=== PATIENT | male | born 1940 | race Caucasian/White ===

== ENCOUNTER → 2016-05-21 | Outpatient (REF) | payer MEDICARE ==
[~2016-05-21] MED LIST: LISI20TA5 PO; LOVA40TA PO; MULTIVIT PO
[2016-05-21 12:04] LABS: BASO % 0.2 % (0.0-1.0); EOS # 0.1 K/mm3 (0.0-0.50); LARGE UNSTAINED CELL # 0.1 K/mm3 (0.0-0.4); LARGE UNSTAINED CELL % 2.4 % (0.0-4.0); LYMPH # 1.3 K/mm3 (1.5-4.5); LYMPH % 23.4 % (24.0-44.0); MEAN CORPUSCULAR HEMOGLOBIN 29.8 pg (27.0-33.0); MEAN CORPUSCULAR HGB CONC 32.9 g/dl (32.0-36.5); MEAN CORPUSCULAR VOLUME 90.5 fl (80.0-96.0); MONO # 0.4 K/mm3 (0.0-0.8); MONO % 7.7 % (0.0-5.0); NEUTROPHILS # 3.7 K/mm3 (1.8-7.7); NEUTROPHILS % 64.3 % (36.0-66.0); PLATELET COUNT, AUTOMATED 219 k/mm3 (150-450); RED CELL DISTRIBUTION WIDTH 12.3 % (11.5-14.5); WHITE BLOOD COUNT 5.7 K/mm3 (4.0-10.0)
[2016-05-21 12:18] LABS: ALBUMIN 3.6 GM/DL (3.2-5.2); ALBUMIN/GLOBULIN RATIO 1.06 (1.00-1.93); BILIRUBIN,TOTAL 1.1 MG/DL (0.2-1.0); CALCIUM LEVEL 9.1 MG/DL (8.8-10.2); CREATININE FOR GFR 1.9 MG/DL (0.70-1.30); GLOMERULAR FILTRATION RATE 36.9 (>42); POTASSIUM SERUM 3.7 MEQ/L (3.5-5.1)
== END ==
LOC: M SFHCPLAZ 08:03
PROVIDERS: ATTEND Family Medicine
DX: D50.9 Iron deficiency anemia, unspecified (principal); E11.9 Type 2 diabetes mellitus without complications; E78.2 Mixed hyperlipidemia

== ENCOUNTER → 2016-05-28 | Outpatient (REF) | payer MEDICARE ==
[~2016-05-28] MED LIST changes: +ATOR40TA PO; +FINA5TAB2 PO; +GLIM1TAB PO; +LEVE750T5 PO; +LEVO500T32 PO; +LISI40TAB PO; +RAPA8CAP PO; +VITMTA PO
[2016-05-28 14:05] LABS: ALBUMIN 3.7 GM/DL (3.2-5.2); ALBUMIN/GLOBULIN RATIO 1.16 (1.00-1.93); BILIRUBIN,TOTAL 1.2 MG/DL (0.2-1.0); CREATININE FOR GFR 1.89 MG/DL (0.70-1.30); GLOMERULAR FILTRATION RATE 37.1 (>42); POTASSIUM SERUM 3.7 MEQ/L (3.5-5.1); TOTAL PROTEIN 6.9 GM/DL (6.4-8.2)
== END ==
LOC: M SFHCPLAZ 10:32
PROVIDERS: ATTEND Family Medicine
DX: N18.2 Chronic kidney disease, stage 2 (mild) (principal); N40.1 Benign prostatic hyperplasia with lower urinary tract symptoms; R97.20 Elevated prostate specific antigen [PSA]
CPT/HCPCS: 36415; 80053; G0103

== ENCOUNTER → 2016-05-28 | Outpatient (CLI) | payer MEDICARE ==
--- NOTE | 2016-05-28 09:53 | REP ---
RENAL ULTRASOUND WITH DUPLEX DOPPLER RENAL ARTERY EVALUATION: Real-time sonographic evaluation of the kidneys performed. The kidneys are normal in size and diffusely hyperechoic in echotexture suggesting medical renal disease. Right kidney measures 11.7 x 6.4 x 6.5 cm and left kidney 12.0 x 6.0 x 6.9 cm. There is mild right hydronephrosis and moderate left hydronephrosis. There is a solid mass in the mid right kidney suspicious for renal cell carcinoma measuring 2.7 x 2.2 x 2.6 cm. A cyst in the right upper pole measures 4.1 cm in diameter and a cyst in the right lower pole measures 1.7 cm in diameter. There is a cyst in the upper pole of the left kidney 1.4 x 1.9 x 1.6 cm. Enlarged prostate is noted measuring 6.7 x 5.4 x 4.4 cm with significant impression upon the base of the bladder. The bladder wall is diffusely thickened and trabeculated with pre-void urinary volume 15.1 x 12.0 x 9.5 cm, total volume is 1124 mL. After voiding, there is significant post void residual of 89% with volume of 997 mL. Distal ureters are noted to be dilated. Right measures 13 mm and left 12 mm in diameter. Real-time ultrasound evaluation and duplex Doppler interrogation of the renal vasculature is performed bilaterally. Peak systolic velocity of the abdominal aorta at the level of the renal arteries is 62.3 cm/s. Peak systolic velocity in the main right renal artery at its origin is 110.7 cm/s with renal to aortic ratio 1.8. Resistive indices measured in the upper, middle and lower thirds of the right kidney and measure 0.8. Acceleration times are in the range of 0.04 to 0.06. Peak systolic velocity in the main left renal artery at its origin is 87.5 cm/s, renal to aortic ratio is 1.4. Resistive indices left kidney are in the range of 0.8. Acceleration times are in the range of 0.05 - 0.06. IMPRESSION: Hyperechoic echotexture of both kidneys suggest medical renal disease. Mild right hydroureteronephrosis and moderate left hydroureteronephrosis. Solid mass mid right kidney suspicious for renal cell carcinoma. Significantly enlarged prostate impressing upon the base of the bladder with markedly distended bladder and significant post void residual. Bladder wall is thickened and trabeculated. No duplex Doppler sonographic evidence of significant renal artery stenosis. Signed by Serafin Gonzales MD 05/28/2016 04:41 P
== END ==
LOC: M RAD 06:46
PROVIDERS: ATTEND Family Medicine
DX: N18.3 Chronic kidney disease, stage 3 (moderate) (principal); N28.89 Other specified disorders of kidney and ureter; N13.30 Unspecified hydronephrosis; E11.9 Type 2 diabetes mellitus without complications; D50.9 Iron deficiency anemia, unspecified; G40.909 Epilepsy, unspecified, not intractable, without status epilepticus; I12.9 Hypertensive chronic kidney disease with stage 1 through stage 4 chronic kidney disease, or unspecified chronic kidney disease; E78.2 Mixed hyperlipidemia; R97.20 Elevated prostate specific antigen [PSA]; N40.1 Benign prostatic hyperplasia with lower urinary tract symptoms

== ENCOUNTER 2016-05-29 17:03 | Inpatient (IN) | payer MEDICARE ==
[~2016-05-29] VITALS: Ht 175.3 cm; Wt 77.2 kg
[~2016-05-29 17:03] MED LIST changes: -ATOR40TA PO; -FINA5TAB2 PO; -GLIM1TAB PO; -LEVE750T5 PO; -LEVO500T32 PO; -LISI40TAB PO; -RAPA8CAP PO; -VITMTA PO
[2016-05-29] MEDS ORDERED: ACETAMINOPHEN 650 MG SUPP PR PRN (18:00)
[2016-05-29] MEDS ORDERED: ONDANSETRON 4MG/2ML VIAL (J2405) IV PRN (18:00)
[2016-05-29 18:30] VITALS: BP 164/95
[2016-05-29] MEDS: PERCOCET 5MG/325MG TAB PO PRN (19:07)
--- NOTE | 2016-05-29 19:16 | REP ---
CT ABDOMEN: REASON: Right renal mass. No priors CT for comparison. Previous ultrasound examination of 05/28/2016 showed a solid right renal mass measuring 2.7 x 2.2 x 2.6 cm. A cyst was also seen in the upper pole and a cyst in the lower pole. The upper pole cyst measuring 4 cm and the lower pole cyst measuring 2 cm. The lack of intravenous contrast decreased the sensitivity of the exam. Limited evaluation of the solid intraabdominal organs and gallbladder show no gross abnormalities. Limited evaluation of the pancreas and adrenal glands show no gross abnormalities. Limited evaluation of the abdominal aorta and paraortic regions show no gross abnormalities. The bowel loops and mesenteries are within normal limits. There is colonic diverticulosis. There was no evidence of free fluid or free air in the abdomen or pelvis. There are multiple bilateral low density renal cystic structures. In the interpolar region of the right kidney there is a rounded 2.4 cm sized suspected renal mass having similar Hounsfield unit readings to the underlying renal cortex. This is markedly difficult to evaluate without intravenous contrast. There are bilateral renal parapelvic cysts. There is mild right sided hydronephrosis and hydroureter. There is left sided hydronephrosis and hydroureter. The bladder wall is markedly thickened and there is a urinary bladder catheter is place. The prostate glands appears asymmetrically enlarged. Air densities are seen in the urinary bladder likely secondary to instrumentation. Bone window technique through the examination shows spinal and hip degenerative changes. Evaluation of the lung bases show suspected bibasilar fibrotic and or subsegmental atelectatic changes . IMPRESSION: 1. The exam is limited without intravenous contrast. 2. Possible right renal mass consistent with the ultrasonographic findings but this could be better evaluated with contrast enhanced CT and or gadolinium enhanced MRI. 3. Bilateral renal cysts. 4. Bilateral hydronephrosis and hydroureter seen in conjunction with markedly thickened urinary bladder wall. Malignancy can not be ruled out. 5. Other findings as described above. Signed by Jett Love DO 05/29/2016 07:30 P
[2016-05-29 19:54] LABS: INR 1.04
[2016-05-29 20:15] LABS: BASO % 0.2 % (0.0-1.0); EOS # 0.1 K/mm3 (0.0-0.50); EOS % 1.1 % (0.0-3.0); LARGE UNSTAINED CELL # 0.2 K/mm3 (0.0-0.4); LYMPH # 1.4 K/mm3 (1.5-4.5); LYMPH % 15.9 % (24.0-44.0); MEAN CORPUSCULAR HGB CONC 33.9 g/dl (32.0-36.5); MEAN CORPUSCULAR VOLUME 88.6 fl (80.0-96.0); MONO # 0.5 K/mm3 (0.0-0.8); MONO % 5.3 % (0.0-5.0); NEUTROPHILS # 6.7 K/mm3 (1.8-7.7); NEUTROPHILS % 75.5 % (36.0-66.0); PLATELET COUNT, AUTOMATED 212 k/mm3 (150-450); RED CELL DISTRIBUTION WIDTH 12.2 % (11.5-14.5); WHITE BLOOD COUNT 8.9 K/mm3 (4.0-10.0)
[2016-05-29 20:19] LABS: ALBUMIN 3.7 GM/DL (3.2-5.2); ALBUMIN/GLOBULIN RATIO 1.19 (1.00-1.93); BILIRUBIN,TOTAL 0.9 MG/DL (0.2-1.0); CALCIUM LEVEL 8.4 MG/DL (8.8-10.2); CREATININE FOR GFR 1.78 MG/DL (0.70-1.30); GLOMERULAR FILTRATION RATE 39.8 (>42); POTASSIUM SERUM 3.5 MEQ/L (3.5-5.1); TOTAL PROTEIN 6.8 GM/DL (6.4-8.2)
[2016-05-29 22:00] VITALS: BP 133/65
[2016-05-29] MEDS ORDERED: FINA5TAB2 PO (22:25)
[2016-05-29] MEDS ORDERED: RAPA8CAP PO (22:25)
[2016-05-29] MEDS ORDERED: LEVE750T5 PO (22:25)
[2016-05-29] MEDS ORDERED: LEVO500T32 PO (22:25)
[2016-05-29] MEDS ORDERED: GLIM1TAB PO (22:25)
[2016-05-29] MEDS ORDERED: ATOR40TA PO (22:25)
[2016-05-29] MEDS ORDERED: VITMTA PO (22:26)
[2016-05-29] MEDS ORDERED: LISI40TAB PO (22:27)
[2016-05-29] MEDS: levETIRAcetam 250MG TABLET (KEPPRA) PO SCH (22:58)
[2016-05-29] MEDS: TAMSULOSIN 0.4 MG CAP PO SCH (22:58)
[2016-05-29] MEDS: FINASTERIDE 5 MG TAB PO SCH (22:58)
[2016-05-29] MEDS: ATORVASTATIN 20 MG TAB PO SCH (22:58)
[2016-05-30] MEDS ORDERED: UNRESOLVED CLARIFICATION ENTRY XX SCH (00:01)
[2016-05-30 06:00] VITALS: BP 118/60
[2016-05-30] MEDS ORDERED: MOXIFLOXACIN 400 MG TAB PO SCH (06:00)
[2016-05-30 06:05] LABS: ALBUMIN 3.1 GM/DL (3.2-5.2); ALBUMIN/GLOBULIN RATIO 0.91 (1.00-1.93); BILIRUBIN,TOTAL 0.8 MG/DL (0.2-1.0); CALCIUM LEVEL 8.3 MG/DL (8.8-10.2); CREATININE FOR GFR 1.72 MG/DL (0.70-1.30); GLOMERULAR FILTRATION RATE 41.4 (>42); POTASSIUM SERUM 3.6 MEQ/L (3.5-5.1); TOTAL PROTEIN 6.5 GM/DL (6.4-8.2)
[2016-05-30 07:23] LABS: MICROSCOPIC INDICATED? MAN YES (NO)
[2016-05-30 07:25] LABS: RBC, URINE TNTC /hpf (0-3)
[2016-05-30 07:26] LABS: HYALINE CAST, URINE NONE SEEN /lpf (0-1); SQUAMOUS EPITHELIAL CELL URINE NONE SEEN /hpf (SMALL AMT)
[2016-05-30 07:28] LABS: BACTERIA, URINE SMALL AMOUNT; MICROSCOPIC EXAM UNSPUN
[2016-05-30] MEDS: PERCOCET 5MG/325MG TAB PO PRN ×2 (08:10→17:28)
[2016-05-30] MEDS: GLIMEPIRIDE 1 MG TABLET PO SCH ×2 (08:50→17:28)
[2016-05-30] MEDS ORDERED: PREVNAR 13 VACCINE SYRINGE (CPT CODE:90670) IM ONE (09:15)
[2016-05-30 14:00] VITALS: BP 127/62
--- NOTE | 2016-05-30 15:24 | ECGEPIP ---
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
[2016-05-30 20:09] VITALS: BP 125/66
[2016-05-30] MEDS: TAMSULOSIN 0.4 MG CAP PO SCH (20:10)
[2016-05-30] MEDS: levETIRAcetam 250MG TABLET (KEPPRA) PO SCH (20:10)
[2016-05-30] MEDS: ATORVASTATIN 20 MG TAB PO SCH (20:10)
[2016-05-30] MEDS: FINASTERIDE 5 MG TAB PO SCH (20:10)
[2016-05-31] MEDS: PERCOCET 5MG/325MG TAB PO PRN ×4 (01:48→20:25)
[2016-05-31] MEDS: LevoFLOXacin 250 MG TABLET PO SCH (05:57)
[2016-05-31 06:00] VITALS: BP 109/62
[2016-05-31] MEDS: GLIMEPIRIDE 1 MG TABLET PO SCH ×2 (08:39→16:51)
[2016-05-31] MEDS ORDERED: PREVNAR 13 VACCINE SYRINGE (CPT CODE:90670) IM ONE (09:00)
[2016-05-31] MEDS ORDERED: PNEUMOCOCCAL VACCINE 0.5ML SYRINGE(90732) PNEUMOVAX 23 IM ONE (09:00)
[2016-05-31 11:12] LABS: CALCIUM LEVEL 8.5 MG/DL (8.8-10.2); CREATININE FOR GFR 1.83 MG/DL (0.70-1.30); GLOMERULAR FILTRATION RATE 38.5 (>42); POTASSIUM SERUM 3.8 MEQ/L (3.5-5.1)
--- NOTE | 2016-05-31 12:36 | IPN ---
DATE: 05/30/2016 SUBJECTIVE: The patient at this time feels comfortable. He had some twinges of bladder discomfort last night and the pain medicine that had been ordered was successful in alleviating his discomfort. He notices that his Martin catheter placed yesterday continues to drain without significant difficulty. He denies nausea, vomiting, chest pain, dizziness, confusion, fevers, chills, sweats, abdominal discomfort or new musculoskeletal or joint pain. Denies numbness, tingling or seizure activity. OBJECTIVE: Vital signs: Blood pressure 118/60, pulse 60, respiratory rate 18, temperature 96.7, pulse oximetry 92% on room. Weight is 77.2 kg and height 69 inches. Estimated ideal body weight is 161 pounds. LABORATORY DATA: Creatinine 1.72, improved from yesterday's 1.78, yesterday evening and that resolve was improved from a profile done on 05/28/2016 that was 1.89 with creatinine, and it was 1.90 on 05/21/2016. Albumin 3.1 today, potassium 3.6, sodium 145. CBC shows a white count of 8900, hemoglobin 12.9 and platelet count 212,000. Urinalysis today shows turbid urine, pH was obscured by coloring. Too numerous to count red cells were seen on the urinalysis. 1-3 white cells per high-power field were identified. This was a catheterized sample after a catheter in place overnight. The urine continues to drain marilia/blood-tinged fluid. Imaging study done yesterday showed this was a CT without contrast. It showed a solid right renal mass 2.7 x 2.2 x 2.6 cm. Also seen a cyst and upper and lower pole also seen. Multiple low density renal cystic structures were identified. There is mild right-sided hydronephrosis and left-sided hydronephrosis and hydroureter as well. The bladder wall appeared to be thickened and the Martin catheter was noted to be present. Recommendation from radiology was to consider enhanced CT or gadolinium-enhanced MRI. I think with the improvement in his creatinine we should follow over the next few days. A CT with contrast would be reasonable. Dr. Garner has been consulted as according to notes from Dr. Melo who admitted the patient yesterday. EXAMINATION: He is alert, oriented, hesitant speech, accompanied by his , in no apparent distress. Barrel-chested, diminished breath sounds but no wheezing, rales or rhonchi. Heart regular rhythm. No murmur identified. Abdomen nontender. No guarding, mass or rebound. No costovertebral angle (CVA) tenderness. No suprapubic tenderness. He has no joint pain and no calf tenderness. Moves all extremities well. Catheter is in place draining marilia urine. Since admission he has had urinary output documented of 1100 mL and 1200 mL promptly upon placement of the catheter documented in the clinic yesterday [facility], Dr. Melo's office. ASSESSMENT: Obstructive uropathy, right renal mass, hematuria, suspicious findings on CT regarding bladder wall. He does have a smoking history so a bladder neoplasm is a consideration, and obviously right renal mass is suspicious for right renal neoplasm. He has a history of BPH, chronic kidney disease, stage III. Calculated clearance today based on his ideal body weight was 37.7, consistent with stage III chronic kidney disease, and he has recently diagnosed type 2 diabetes mellitus. History of epilepsy and he is on Keppra for that purpose, and history of mixed hyperlipidemia and unspecified iron deficiency anemia. PLAN: We will keep the Martin in place until it is draining clear and/or is seen by urology. The tamsulosin was only started a couple of days ago, but it may improve urinary flow sufficiently to allow removal of this catheter. He is also a reasonable candidate to start finasteride. It was showing on his clinic noted it will take many weeks or months for this agent to make a material difference in his ability to empty his bladder, however. More importantly, he will need cystoscopy to evaluate the bladder anterior and it will be up to urology senior financial consultant whether that procedure follows during his hospital stay or is to be arranged as an outpatient. The renal mass was also require further evaluation and if we see further improvement in his creatinine clearance over the next couple of days, then CT with contrast could be obtained. At this point, the patient seems comfortable. He is on Avelox presumably for prophylaxis related to insertion of Martin catheter. Avelox is not particularly a good agent for urinary tract treatment and will change it today from the current Avelox 400 to levofloxacin 250. Patient, because of the active bleeding is not on pharmacologic prophylaxis for deep venous thrombosis (DVT). He is on mechanical prophylaxis only, will encourage ambulation.
[2016-05-31 14:00] VITALS: BP 134/79
[2016-05-31] MEDS ORDERED: MORPHINE 2 MG/ML 1ML SYRINGE As Ordered ONE (16:23)
[2016-05-31] MEDS ORDERED: MORPHINE 2 MG/ML 1ML SYRINGE IV ONE (16:45)
[2016-05-31] MEDS: FINASTERIDE 5 MG TAB PO SCH (20:25)
[2016-05-31] MEDS: levETIRAcetam 250MG TABLET (KEPPRA) PO SCH (20:26)
[2016-05-31] MEDS: ATORVASTATIN 20 MG TAB PO SCH (20:26)
[2016-05-31] MEDS: TAMSULOSIN 0.4 MG CAP PO SCH (20:26)
[2016-05-31 22:00] VITALS: BP 143/73
[2016-06-01] MEDS: LevoFLOXacin 250 MG TABLET PO SCH (05:52)
[2016-06-01] MEDS: PERCOCET 5MG/325MG TAB PO PRN (05:52)
[2016-06-01 06:00] VITALS: BP 121/72
[2016-06-01 07:26] LABS: CALCIUM LEVEL 8.1 MG/DL (8.8-10.2); CREATININE FOR GFR 1.63 MG/DL (0.70-1.30); POTASSIUM SERUM 3.5 MEQ/L (3.5-5.1)
[2016-06-01] MEDS: GLIMEPIRIDE 1 MG TABLET PO SCH (08:11)
--- NOTE | 2016-06-01 08:40 | REP ---
RENAL ULTRASOUND: CLINICAL: Hydronephrosis. TECHNIQUE: Real-time longoria scale ultrasound examination using curved array transducer. FINDINGS: The right kidney demonstrates increased parenchymal echogenicity without hydronephrosis and measures 12.5 x 5.7 x 6.5 cm. Upper pole simple cyst measures 4.2 cm maximal diameter while mid pole cyst measures 1.8 cm maximal diameter. A solid appearing mass lesion along the mid pole periphery of the right kidney is identified and measures 2.9 x 2.6 x 2.2 cm requiring further evaluation. The left kidney is normal in reniform shape and demonstrates cortical thinning consistent with renal atrophy. Left kidney measures 12.8 x 5.1 x 5.5 cm without hydronephrosis and demonstrates a simple mid pole cyst measuring 2.5 cm diameter. Martin catheter identified in collapsed bladder. IMPRESSION: 1. 2.9 cm solid appearing mass along the periphery of the right kidney requires further investigation. 2. Few bilateral simple cysts and evidence for chronic medical renal disease without hydronephrosis. 3. Martin catheter in bladder. Signed by Kan Olivarez MD 06/05/2016 11:05 A
[2016-06-01 10:00] VITALS: BP 113/71
[2016-06-01] MEDS ORDERED: FLOM5CAP PO (12:35)
[2016-06-01] MEDS ORDERED: LEVA250T PO (12:35)
--- NOTE | 2016-06-01 12:58 | IPN ---
DATE OF SERVICE: 05/31/2016 SUBJECTIVE: The patient feels well. He is tolerating his Martin catheter without difficulty. He has had no fevers, chills, or flank pain, and no nausea or other signs of symptoms of discomfort. EXAMINATION: His input and output yesterday, 2480 in, output 1350. Weight is 77 kg, approximately the same as yesterday, which was 77.2. Blood pressure 109/62, pulse 60, respiratory rate 20, oxygen (O2) saturation 93% on room air, afebrile at 95.9 temperature. He is alert, pleasant, cooperative. He reintroduced his to me, even though she was present when I examined him yesterday, giving some evidence of a memory impairment. His speech is clear and fluent, however. He moves all extremities well and without difficulty. Lungs: Clear to auscultation. Heart: Regular rate and rhythm without murmur. No costovertebral angle (CVA) tenderness. Martin catheter is in place and draining red-colored urine without evidence of chronic clotting, which seems to be a bit of improvement compared to yesterday. ASSESSMENT: 1. Obstructive uropathy with hematuria. 2. Thickened bladder wall on imaging study. 3. Right renal mass on imaging study. PLAN: Contact urology to try to arrange followup opinion. The patient may be a candidate for cystoscopy and/or further management, certainly of the right renal mass. Continue his current medications, which include tamsulosin and finasteride, as well as levofloxacin 250 mg daily. Dose reduced because of his moderate renal disease. Glimepiride 1 mg twice a day. Levetiracetam 750 mg daily for history of seizure disorder. Atorvastatin 40 mg daily for hypercholesterolemia and pain medication as required. He has had a dose this morning. Despite his assertions that he has no discomfort, he seems to have experienced enough to request the pain medication. Final disposition would be per recommendations after urology consultation.
[2016-06-01 14:00] VITALS: BP 130/78
--- NOTE | 2016-06-01 15:44 | CR ---
DATE OF CONSULTATION: 05/31/2016 REASON FOR CONSULTATION: Gross hematuria, enlarged prostate, and renal mass. HISTORY OF PRESENT ILLNESS: The patient is a 75-year-old gentleman who was being seen as an outpatient by Dr. Melo. A renal ultrasound had been ordered, which showed an enlarged prostate pressing on the base of the bladder, with urinary retention and also hyperechoic kidney, suggestive of medical renal disease and also a solid renal mass. Dr. Melo decided to place a Martin catheter and it sounds like 997 mL came out. The patient began having gross hematuria, so he was sent over to the hospital and a urologic consultation was called today. Dr. Melo started the patient on finasteride and Rapaflo. A CT scan was then done on 05/29/2016 which did show a 2.7 cm solid renal mass on the right hand side with multiple renal cysts. He also had mild right hydronephrosis and left hydroureter nephrosis down to a thickened bladder wall with the distended bladder. The patient denied any difficulty urinating prior to the Martin catheter being placed. He denied any suprapubic pain or tenderness. He did have urinary urgency and occasional urge incontinence and he did go to the bathroom frequently. He felt though that his stream was normal, although he was not sure that he was emptying his bladder completely. He denies any history of gross hematuria or kidney stones prior to this. He does have a history of an elevated PSA level and reportedly had a prostate biopsy back in 05/2010, which was negative. PAST MEDICAL HISTORY: 1. 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 High blood pressure. 3. Type 2 diabetes. 4. Chronic anemia. 5. Left bundle branch block. 6. 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 7. Mild left ventricular hypertrophy. PAST SURGICAL HISTORY: Colonoscopy with polyp removals. MEDICATIONS: - Keppra - Lipitor - lisinopril - multivitamins - glimepiride ALLERGIES: PENICILLIN and PENICILLIN DERIVATIVES. SOCIAL HISTORY: He quit smoking cigarettes greater than 10 years ago. He denies drinking alcohol or using illicit drugs. FAMILY HISTORY: His father at 60 from a myocardial infarction (NC) and cerebrovascular accidents (CVAs). His mother in her 70s from a myocardial infarction (NC). His sister also from a myocardial infarction (NC). PHYSICAL EXAMINATION: This a well-developed, well-nourished gentleman in a hospital room in no apparent respiratory distress. He is alert and oriented times three, but a very poor historian and a little slow in cognition. He is afebrile. His blood pressure is 109/62 and his pulse is 60. His respiratory rate is 20. His head is normocephalic, atraumatic. His trachea was midline. He had no significant supraclavicular or cervical adenopathy. His lungs were clear to auscultation and percussion. His heart had a regular rate and rhythm. He has no costovertebral angle (CVA) tenderness on examination. His abdomen is soft and nontender. A Martin catheter is in place and it is draining dark red urine without any clots in the bag. His extremities show no cyanosis, clubbing or edema. LABORATORY DATA: His BUN is 27 today and a creatinine of 1.83 and he is not sure what his baseline is. His hemoglobin and hematocrit (H and H) is 12.9/38.1. A urinalysis shows too numerous to count red blood cells and one to three white blood cells per high power field and a urine culture is pending. CT scan of the abdomen and pelvis 05/26/2016: This does show a solid renal mass measuring 2.7 cm in the right renal pelvis and multiple right renal cysts. There is also bilateral hydronephrosis with a thickened bladder wall and a distended bladder with an enlarged prostate. Renal ultrasound 05/28/2016 shows hyperechoic kidneys suggestive of medical renal disease, again with an enlarged prostate pressing on the base of the bladder. DISCUSSION: I discussed these findings at length with Yobany and his in the office today. We did discuss the findings of the solid renal mass, which is concerning for renal cell carcinoma. He also has a rising PSA level, which is concerning for prostate cancer, especially with the other findings, although he does have a quite enlarged prostate also. We also discussed that the kidneys are slightly blocked and that this also needs to be followed. IMPRESSION: 1. Urinary retention, now with a Martin catheter in place and gross hematuria. 2. Bilateral mild to moderate hydroureteralnephrosis, most likely secondary to the urinary retention, but we will be repeating a renal ultrasound. 3. History of chronic kidney disease with a BUN and creatinine now of 27/1.83 and I am not sure what his baseline is. 4. Significant benign prostatic hypertrophy (BPH), most likely with a median lobe by renal ultrasound and CT scan. 5. Elevated PSA level with a prostate biopsy 05/30/2016, with a PSA 05/28/2016 8.34, up from 5.84 01/04/2016 and up from 4.02 03/04/2016 6. Renal mass, 2.7 cm on the right kidney, which is solid in nature, also with multiple bilateral cysts. PLAN: 1. Change the Martin catheter to a three-way Martin and begin continuous bladder irrigation and hand irrigate as needed. 2. Continue Rapaflo and finasteride for now, which was just started by Dr. Melo a few days ago. 3. Repeat renal ultrasound to make sure that there is no continued hydroureter nephrosis with an empty bladder. 4. When the patient is ready to be discharged, we will discharge with a Martin catheter in place and plan a voiding trial in approximately one week in the office and the patient may require a repeat prostate biopsy and further consideration for his solid renal mass. DEJUAN
--- NOTE | 2016-06-01 16:58 | IPN ---
DATE: 05/31/2016 INDICATIONS FOR PROCEDURE: The patient came into the hospital; found to be in acute urinary retention with an elevated creatinine level and a Martin catheter had been placed, which had been bloody overnight. I asked the nurses to exchange to a three-way Martin catheter and start continuous bladder irrigation. The nurse had attempted to do this, but was unable to so I was called back into the hospital. PROCEDURE: At this point, the patient was prepped and draped in the usual fashion. Lidocaine jelly was inserted in the urethra and a 22-Khmer three-way Martin catheter was inserted without any difficulties. 5 mL was placed in the balloon with sterile water. At this point the patient was hand irrigated and there was not any significant clots and the urine cleared nicely. He was started on low continuous bladder irrigation.
--- NOTE | 2016-06-01 20:44 | IPN ---
DATE: 06/01/2016 Mr. Chow had a three-way Martin catheter placed last night and it is now draining clear on low continuous bladder irrigation without any clots. He denies any pain or issues. PHYSICAL EXAMINATION: He is afebrile. His blood pressure is 121/72. His pulse is 77. His respiratory rate is 18 and his pulse ox is 96% on room air. He has no CVA tenderness. His abdomen is soft and nontender and his extremities show no cyanosis, clubbing or edema. A renal ultrasound was done 05/31/2016 and this showed no further hydroureter nephrosis with the Martin catheter in place. LABORATORY DATA: His BUN is 25 and his creatinine is 1.63; down from admission at 1.78. His BUN is 25 and he does have chronic kidney disease. His H H is 12.9/38.1. IMPRESSION: 1. Urinary retention with bladder outlet obstruction secondary to BPH but also with an elevated PSA level of 8 that been rising significantly over the past several years. 2. New findings of a right solid renal mass. 3. Chronic kidney disease found on admission CT to have bilateral hydroureter nephrosis but this appears to be secondary to outlet obstruction since the renal ultrasound showed no hydro once a Martin catheter was placed and 600 mL were drained. PLAN: 1. Try to stop CBI today and discharge the patient with the Martin catheter to have a voiding trial this coming week in the office. 2. The patient to follow up with Dr. Hatfield or Dr. Garner and most likely will require a cystoscopy for further assessment of his bladder outlet obstruction, but also to discuss his solid renal mass that measures 2.7 cm in the largest diameter on the right and the options for this. DEJUAN
--- NOTE | 2016-06-02 10:00 | DSES ---
DATE OF ADMISSION: 05/29/2016 DATE OF DISCHARGE: 06/01/2016 This is a 75-year-old male who presented to his primary care provider's office due to an abnormal ultrasound of his kidney. Patient showed a 2.9 cm solid appearing mass along the periphery of the right kidney. Martin catheter insertion was attempted and patient had significant amount of gross hematuria, subsequently admitted. HOSPITAL COURSE: Patient had a urology consult. Tamsulosin 0.8 mg daily at bedtime was started. Patient was also placed on Levaquin 250 mg by mouth daily for presumed urinary tract infection (UTI). However, microbiology returned with negative findings on the culture. Patient status post urology evaluation. They have set up for patient to see them as an outpatient and advised patient can go home with Martin catheter. Patient has been educated and is willing to go home with home health services and care of the Martin catheter. On physical exam today, vital signs are stable. He is afebrile. HEENT: Neck is supple without lymphadenopathy or jugular venous distention. Cardiovascular: Heart rate and rhythm regular. Pulmonary: Lungs are clear to auscultation bilaterally. Abdomen is soft with mild tenderness secondary to some constipation. Bilateral lower extremities are without any edema. ASSESSMENT: 1. Renal mass. 2. Obstructive uropathy. 3. Hematuria. 4. Suspicious findings on CT regarding bladder wall. 5. Benign prostatic hypertrophy (BPH). 6. Chronic kidney disease stage III. 7. Recent diagnosis of type 2 diabetes. 8. History of epilepsy. 9. History of hyperlipidemia. 10. Iron deficiency anemia. PLAN: Patient will be discharged home. Diet is 2 gram sodium. Activity is as tolerated. Patient will have Martin catheter indwelling. He will followup with urology on 06/05 and has appointment to follow with Madelin Barajas. He will follow with his primary care provider within the next 5 days, Dr. Chris Melo, [facility]. MEDICATIONS: - tamsulosin 0.8 mg by mouth daily at bedtime - atorvastatin 40 mg by mouth daily every evening - finasteride 5 mg by mouth daily at bedtime - glimepiride 1 mg by mouth twice daily - Keppra 750 mg by mouth daily every evening - lisinopril 40 mg by mouth daily - multivitamin one daily Patient received Pneumovax while inpatient on 05/31 as documented. Patient is discharged in stable and satisfactory condition with no further questions at time of discharge.
== END 2016-06-01 15:10 | disposition home health service (06) | DRG 726 ==
LOC: M MS5PR 18:03
PROVIDERS: ADMIT Family Medicine; ATTEND Family Medicine
DX: N40.1 Benign prostatic hyperplasia with lower urinary tract symptoms (principal); N17.9 Acute kidney failure, unspecified; N13.30 Unspecified hydronephrosis; N28.89 Other specified disorders of kidney and ureter; E11.9 Type 2 diabetes mellitus without complications; D50.9 Iron deficiency anemia, unspecified; G40.909 Epilepsy, unspecified, not intractable, without status epilepticus; I12.9 Hypertensive chronic kidney disease with stage 1 through stage 4 chronic kidney disease, or unspecified chronic kidney disease; N13.9 Obstructive and reflux uropathy, unspecified; E78.2 Mixed hyperlipidemia; R31.9 Hematuria, unspecified; E66.9 Obesity, unspecified; R97.20 Elevated prostate specific antigen [PSA]; N18.3 Chronic kidney disease, stage 3 (moderate); R33.9 Retention of urine, unspecified; Z79.84 Long term (current) use of oral hypoglycemic drugs; Z79.899 Other long term (current) drug therapy; K59.00 Constipation, unspecified; Z87.891 Personal history of nicotine dependence; Z88.0 Allergy status to penicillin; Z68.28 Body mass index [BMI] 28.0-28.9, adult; Z86.73 Personal history of transient ischemic attack (TIA), and cerebral infarction without residual deficits

== ENCOUNTER → 2016-06-10 | Outpatient (CLI) | payer MEDICARE ==
[~2016-06-10] MED LIST changes: +ATOR40TA PO; +FINA5TAB2 PO; +FLOM5CAP PO; +GLIM1TAB PO; +LEVA250T PO; +LEVE750T5 PO; +LEVO500T32 PO; +LISI40TAB PO; +RAPA8CAP PO; +VITMTA PO
--- NOTE | 2016-06-10 15:24 | REP ---
MRI KIDNEYS WITH AND WITHOUT CONTRAST: TECHNIQUE: Multiple pre- and post IV gadolinium sequences in the axial and coronal planes, with the intravenous administration of 8 mL of gadolinium. Correlation made with prior ultrasound 05/31/[address] 05/29/2016. Complex heterogeneously enhancing mass in the lower pole of the right kidney is seen most consistent with renal cell carcinoma. This measures approximately 2.4 cm in diameter. There is an adjacent posterior cyst which does not enhance measuring 1.8 cm in diameter. Daughter cyst is also seen in the upper pole of the right kidney measuring approximately 4.2 cm in diameter. There is a cyst in the posterior mid left kidney measuring 2 cm in diameter. There is no hydronephrosis bilaterally. There is no periaortic adenopathy at the level of the kidneys. There is no free fluid in the visualized abdomen. There is no other significant finding in the visualized abdomen. IMPRESSION: Solid heterogeneously enhancing mass lower pole right kidney laterally 2.4 cm in maximum diameter. This is most consistent with renal cell carcinoma. Two cysts are seen in the right kidney and one cyst is seen in the left kidney. No other abnormality is seen of the visualized abdominal structures. Signed by Serafin Gonzales MD 06/10/2016 03:43 P
== END ==
LOC: M RAD 12:33
PROVIDERS: ATTEND Urology
DX: N28.89 Other specified disorders of kidney and ureter (principal); N28.1 Cyst of kidney, acquired; R93.421 Abnormal radiologic findings on diagnostic imaging of right kidney
CPT/HCPCS: 74183; A9576

== ENCOUNTER → 2016-06-23 | Outpatient (CLI) | payer MEDICARE ==
[2016-06-24 14:23] LABS: PSA TOTAL 10.4 ng/mL (0.0-4.0)
== END ==
LOC: M SMT 10:43
PROVIDERS: ATTEND Urology
DX: R97.20 Elevated prostate specific antigen [PSA] (principal)
CPT/HCPCS: 36415; 51701; 84154; G0463

== ENCOUNTER → 2016-06-26 | Outpatient (CLI) | payer MEDICARE ==
[~2016-06-26] MED LIST changes: +KEPP1TAB2 PO; +LIDO2JELLY TOP
--- NOTE | 2016-06-26 17:29 | REP ---
TRANSRECTAL PROSTATE ULTRASOUND WITH ULTRASOUND GUIDANCE FOR PROSTATE BIOPSY: Real-time sonographic evaluation of the prostate performed. Transrectal probe is utilized. Size of the gland is 7.3 x 7.2 x 6.3 cm for a total volume of 175 mL. Echotexture diffusely heterogenous with scattered tiny calcifications. A right sided nodule measures 15 x 11 mm. A left sided nodule measures 13 x 8 mm. Seminal vesicles appear symmetrical. Ultrasound guidance was provided per Dr. Garner who performed ultrasound guided biopsy of the prostate. Signed by Serafin Gonzales MD 06/26/2016 05:41 P
== END ==
LOC: M SMT PRO 10:12
PROVIDERS: ATTEND Urology
DX: R97.20 Elevated prostate specific antigen [PSA] (principal); N41.9 Inflammatory disease of prostate, unspecified
CPT/HCPCS: 55700; 76872; 76942; G0416

== ENCOUNTER 2016-07-21 12:00 | Inpatient (IN) | payer MEDICARE ==
[~2016-07-21] VITALS: Ht 167.6 cm; Wt 78.0 kg
[2016-08-04] MEDS ORDERED: LR 1,000 ML IV ONE (10:00)
[2016-08-04] MEDS ORDERED: BUPIVACAINE HCL 0.25% 30 ML VIAL As Ordered ONE (13:41)
[2016-08-04] MEDS ORDERED: LIDOCAINE 1% SDV INJ 30 ML VIAL As Ordered ONE (13:41)
[2016-08-04] MEDS ORDERED: ONDANSETRON 4MG/2ML VIAL (J2405) As Ordered ONE (13:55)
[2016-08-04] MEDS ORDERED: GLYCOPYRROLATE INJ 0.2 MG/ML 2 ML VIAL As Ordered ONE (13:55)
[2016-08-04] MEDS ORDERED: NEOSTIGMINE 1MG/ML 5 ML SYRINGE (J2710) As Ordered ONE (13:55)
[2016-08-04] MEDS ORDERED: fentaNYL 250 MCG/5 ML INJECTION (J3010) As Ordered ONE (13:55)
[2016-08-04] MEDS ORDERED: ESMOLOL INJ 100MG/10ML VIAL As Ordered ONE (13:55)
[2016-08-04] MEDS ORDERED: MIDAZOLAM INJ 2 MG/2 ML VIAL (J2250) As Ordered ONE (13:55)
[2016-08-04] MEDS ORDERED: ROCURONIUM BROMIDE 50 MG/5 ML VIAL As Ordered ONE (13:55)
[2016-08-04] MEDS ORDERED: LIDOCAINE 2% INJ 100 MG/5 ML SDV (FOR ANES.) As Ordered ONE (13:55)
[2016-08-04] MEDS ORDERED: PROPOFOL 200 MG/20 ML VIAL As Ordered ONE (13:55)
[2016-08-04] MEDS ORDERED: METOCLOPRAMIDE INJ 10MG/2ML VIAL (J2765) As Ordered ONE (13:55)
[2016-08-04] MEDS ORDERED: ePHEDrine SULFATE 25 MG/5 ML(5MG/ML) SYRINGE As Ordered ONE (13:55)
[2016-08-04] MEDS ORDERED: HYDROmorphone HCL 2 MG/ML 1ML VIAL (J1170) As Ordered ONE (14:12)
[2016-08-04] MEDS ORDERED: MANNITOL 25% 12.5 GM/50 ML VIAL (J2150) As Ordered ONE (14:33)
[2016-08-04] MEDS ORDERED: PHENYLephrine HCL 500 MCG/5 ML (100MCG/ML) SYRINGE (J2370) As Ordered ONE (15:21)
[2016-08-04] MEDS ORDERED: DESFLURANE 240 ML INHALANT As Ordered ONE (15:48)
[2016-08-04] MEDS ORDERED: dexameTHASONE 4 MG/ML 1ML VIAL (J1100) As Ordered ONE (17:41)
[2016-08-04] MEDS ORDERED: ACETAMINOPHEN TAB 650MG DOSE (2X325MG) PO PRN (19:00)
[2016-08-04] MEDS ORDERED: LR 1,000 ML IV SCH (19:00)
[2016-08-04] MEDS ORDERED: GLUCAGON FOR INJ 1 MG VIAL (J1610) SC PRN (19:00)
[2016-08-04] MEDS ORDERED: HYDROmorphone HCL 1 MG/ML SYRINGE (J1170) IV PRN (19:00)
[2016-08-04] MEDS ORDERED: MORPHINE 2 MG/ML 1ML SYRINGE IV PRN (19:00)
[2016-08-04] MEDS ORDERED: PERCOCET 5MG/325MG TAB PO PRN (19:00)
[2016-08-04] MEDS ORDERED: ONDANSETRON 4MG/2ML VIAL (J2405) IV PRN ×2 (19:00)
[2016-08-04] MEDS ORDERED: GLUCOSE 4 GM CHEW TABLET PO PRN (19:00)
[2016-08-04] MEDS ORDERED: fentaNYL 100 MCG/2 ML INJECTION (J3010) IV PRN (19:00)
[2016-08-04] MEDS ORDERED: DEXTROSE 50% 50 ML SYRINGE IV PRN (19:00)
[2016-08-04 19:33] LABS: MEAN CORPUSCULAR HEMOGLOBIN 30.6 pg (27.0-33.0); MEAN CORPUSCULAR HGB CONC 33.2 g/dl (32.0-36.5); MEAN CORPUSCULAR VOLUME 92.4 fl (80.0-96.0); RED CELL DISTRIBUTION WIDTH 13.3 % (11.5-14.5); WHITE BLOOD COUNT 10.6 K/mm3 (4.0-10.0)
--- NOTE | 2016-08-04 19:33 | ROOPDOC ---
[facility] Report Of Operation Report of Operation DATE OF PROCEDURE: 08/04/2016 PREPROCEDURE DIAGNOSIS: Right renal mass. POSTPROCEDURE DIAGNOSIS: Right renal mass, right renal cyst. PROCEDURE: Right robotic assisted laparoscopic partial nephrectomy and renal cyst decortication with renal exploration and intraoperative ultrasound for tumor mapping. SURGEON: Miladis Moulton MD JACKSCREW MAN: Zahraa Ann NP ANESTHESIA: General. OPERATIVE INDICATIONS: This is a 76-year-old male who was found recently on CAT scan to have an approximately 2.5cm enhancing right renal mass. He opted to undergo the above procedure for treatment. DESCRIPTION OF PROCEDURE: The patient was brought to the operating room where general anesthesia was induced. Prophylactic antibiotics were infused. A 16Fr coude catheter was then placed under sterile conditions. He was then placed in the left lateral decubitus position and secured to the table with tape. All pressure points were appropriately padded. He was then prepped and draped in the usual sterile fashion. Initial incision was for a 12 mm port along the lateral rectus margin in line with the 11th rib. After incision was made, the Veress needle was utilized to achieve pneumoperitoneum. A 12 mm port was inserted through this incision. Next, the camera was inserted and there were no apparent injuries from either Veress needle placement or initial trocar placement. The remainder of the ports were then placed under direct vision, including a 12 mm back office medical assistant port just distal to the camera port. Two robotic ports were placed with one of them between the anterior superior iliac spine and umbilicus and the other one just off the costal margin. In addition, two 5 mm ports were placed with one just beneath the xiphoid and the other one midway between the camera port and the right hand robotic port. After all the ports were placed, the robot was then docked. We began by releasing adhesions between the liver and upper part of Gerota's fascia. The liver was then lifted cephalad using a locking Allis clamp. We then mobilized the right colon away from Gerota's fascia. The duodenum was kocherized. At this point, the inferior vena cava was readily seen. We traced it up towards the right renal vein. Of note the patient had 2 renal veins. Just inferior and posterior to the more distal renal vein we identified the right renal artery. The artery was carefully dissected and cleared. Once we had dissected the artery, we then mobilized the kidney within Gerota's fascia. On the upper pole of the kidney a large cyst was seen. This cyst was punctured and clear fluid was aspirated. The wall of the cyst was then removed and sent for pathologic analysis. The edges of the cyst wall were then cauterized. The mass was found on the lower pole of the kidney in an anterior location. At this point, intraoperative ultrasound was performed to notate the margins of the tumor. Of note, while doing our dissection of the kidney, no additional abnormalities were seen on the kidney. Once we made note of the margins of the tumor, I asked anesthesia to administer 12.5 mg of Mannitol. After that was done, we proceeded to place a clamp on the renal artery. We did not clamp the vein. After our clamp was placed and it was clear that we had good vascular control, we began to dissect out the tumor. The tumor was then dissected using cold scissors. We kept doing this until the tumor was completely excised. It did appear that we had clean margins. After excising the tumor, we then performed the renorrhaphy. This was first performed using a #2-0 Vicryl suture and this was utilized to suture the deeper portion of the renal defect. After that point, we used an #0 Vicryl suture to reapproximate the renal capsule. Both of these sutures were cinched down using Weck clips. After these sutures were placed, the vascular clamp was taken off the renal artery. Of note, the warm ischemia time was 25 minutes. Once the vascular clamp was removed, it did appear that hemostasis was excellent. We placed Emma hemostatic powder over the partial nephrectomy bed. Once we confirmed excellent hemostasis, we then reapproximated Gerota's fascia using Weck clips. The tumor was then placed in an Endo Catch bag for future retrieval. We released the locking Allis clamp which was retracting the liver and there did not appear to be any injuries to the liver. Next, we removed the left hand robotic instrument and inserted a J-P drain in through that port site. This drain was placed just anterior to the right kidney. Once that was done, the robot was undocked. We then sutured the J-P drain in place using a #2-0 Ethilon suture. After that was done, we removed the tumor through the back office medical assistant port site. We then utilized the Fadi-Nidia fascia closure device to place #0 Vicryl free ties through the fascia of both the 12 mm camera port site and the 15 mm back office medical assistant port site. Once that was done, all the remaining ports were removed under direct vision. There was no bleeding seen. The previously placed #0 Vicryl free ties were then tied down. All the wounds were then thoroughly irrigated. After that was done, each incision was closed with running #4-0 Monocryl subcuticular suture. Once all the incisions were closed, Dermabond was applied and local anesthetic was applied. This marked conclusion of the procedure. The patient was then awakened from anesthesia and then transported to the recovery room in stable condition. Estimated blood loss: 50 mL. Complications: None. Specimen: Right renal mass, right renal cyst wall. Warm Ischemia Time: 25 minutes. Percent Normal Kidney Spared: Approximately 95%. Plan: The patient will be admitted to the hospital postoperatively. He will be observed and will ultimately be discharged home once his kidney function is stable, his pain is controlled with oral pain medication and he is tolerating a regular diet. MILADIS MOULTON MD August 04, 2016 19:33
[2016-08-04 19:43] LABS: ANION GAP 6 MEQ/L (8-16); BLOOD UREA NITROGEN 17 MG/DL (7-18); CALCIUM LEVEL 8.3 MG/DL (8.8-10.2); CARBON DIOXIDE LEVEL 28 MEQ/L (21-32); CHLORIDE LEVEL 105 MEQ/L (98-107); GLOMERULAR FILTRATION RATE > 60.0 (>42); GLUCOSE, FASTING 149 MG/DL (83-110); POTASSIUM SERUM 4.1 MEQ/L (3.5-5.1); SODIUM LEVEL 139 MEQ/L (136-145)
[2016-08-04 21:50] VITALS: BP 162/85
[2016-08-04 22:20] VITALS: BP 160/80
[2016-08-04] MEDS: NS 1,000 ML IV SCH (23:03)
[2016-08-04] MEDS: FINASTERIDE 5 MG TAB PO SCH (23:04)
[2016-08-04] MEDS: levETIRAcetam 250MG TABLET (KEPPRA) PO SCH (23:04)
[2016-08-04] MEDS: ceFAZolin SOD 1 GM in D5W MINI-BAG PLUS 50 ML IV SCH (23:04)
[2016-08-04] MEDS: ATORVASTATIN 20 MG TAB PO SCH (23:04)
[2016-08-04] MEDS: DOCUSATE SODIUM 100 MG CAP PO SCH (23:04)
[2016-08-04 23:20] VITALS: BP 132/65
[2016-08-05 00:20] VITALS: BP 122/60
[2016-08-05 01:20] VITALS: BP 128/72
[2016-08-05] MEDS: ceFAZolin SOD 1 GM in D5W MINI-BAG PLUS 50 ML IV SCH (06:13)
[2016-08-05] MEDS: NS 1,000 ML IV SCH ×2 (06:15→20:34)
[2016-08-05 06:44] LABS: MEAN CORPUSCULAR HEMOGLOBIN 30.6 pg (27.0-33.0); MEAN CORPUSCULAR HGB CONC 33.3 g/dl (32.0-36.5); MEAN CORPUSCULAR VOLUME 91.9 fl (80.0-96.0); RED CELL DISTRIBUTION WIDTH 13.2 % (11.5-14.5); WHITE BLOOD COUNT 12.9 K/mm3 (4.0-10.0)
[2016-08-05 07:08] LABS: CALCIUM LEVEL 8.4 MG/DL (8.8-10.2); CREATININE FOR GFR 1.31 MG/DL (0.70-1.30); GLOMERULAR FILTRATION RATE 56.5 (>42); POTASSIUM SERUM 4.3 MEQ/L (3.5-5.1)
[2016-08-05] MEDS ORDERED: PERCOCET 5MG/325MG TAB PO PRN (08:15)
[2016-08-05] MEDS: HumaLOG INSULIN (NovoLOG) PER UNIT SC SCH ×3 (08:48→17:58)
--- NOTE | 2016-08-05 08:48 | IPNPDOC ---
Assessment/Plan Date Seen The patient was seen on 08/05/16. Patient Summary This is a 76 y/o M POD1 s/p right robotic-assisted laparoscopic partial nephrectomy and cyst decortication. He is doing well. His Hb is stable at 12. His Cr is up a little to 1.3. He had at least 300-400cc of urine in his drainage bag this morning. Plan/VTE VTE Prophylaxis Ordered?: Yes VTE Exclusion Mechanical Proph: N/A:VTE Prophy Ordered Plan/Urinary Catheter Urinary Catheter: Other Catheter: (keep catheter in place as the patient is in chronic urinary retention due to BPH) Plan - keep catheter to gravity drainage - decrease IVF - percocet prn pain w/ morphine for breakthrough pain - ambulate - continue home meds - sliding scale insulin - SCDs - incentive spirometry - strict I/Os - advance diet as tolerated Subjective Review oF Systems Chief Complaint The patient is a 76-year-old male admitted with a reason for visit of Renal Mass. Events since Last Encounter No acute events o/n. Good pain control. No n/v. No chest pain or shortness of breath. No f/c/ns. Objective Physical Examination General Exam: Alert, Cooperative, No Acute Distress ENT EXAM: Atraumatic ABDOMEN EXAM: Soft, Tenderness (appropriately tender), Other (incisions clean/ dry/intact; MANN draining serosanguinous output) Skin Exam: Nl turgor and temperature Neuro Exam: Normal Speech Psych Exam: Mental status NL, Mood NL Other physical findings catheter draining clear urine Vital Signs/I&O Vital Signs Date Time Temp Pulse Resp B/P (MAP) Pulse Ox O2 Delivery O2 Flow Rate FiO2 08/05/16 05:41 97 Nasal Cannula 2.0 08/05/16 01:20 99.0 95 16 128/72 (90) I&O- Last 24 Hours up to 6 AM 08/05/16 06:00 Intake Total 4682 ml Output Total 690 ml Balance 3992 ml Laboratory Data Labs 24H Laboratory Tests 2 08/04/16 19:09: Anion Gap 6L, Glomerular Filtration Rate > 60.0, Blood Urea Nitrogen 17, Creatinine 1.20, Sodium Level 139, Potassium Level 4.1, Chloride Level 105, Carbon Dioxide Level 28, Calcium Level 8.3L 08/05/16 06:31: Anion Gap 7L, Glomerular Filtration Rate 56.5, Blood Urea Nitrogen 18, Creatinine 1.31H, Sodium Level 138, Potassium Level 4.3, Chloride Level 105, Carbon Dioxide Level 26, Calcium Level 8.4L CBC/BMP Laboratory Tests 08/04/16 19:09 Red Blood Count 3.90 L, Mean Corpuscular Volume 92.4, Mean Corpuscular Hemoglobin 30.6, Mean Corpuscular Hemoglobin Concent 33.2, Red Cell Distribution Width 13.3, Calcium Level 8.3 L 08/05/16 06:31 Red Blood Count 3.92 L, Mean Corpuscular Volume 91.9, Mean Corpuscular Hemoglobin 30.6, Mean Corpuscular Hemoglobin Concent 33.3, Red Cell Distribution Width 13.2, Calcium Level 8.4 L MILADIS MOULTON MD August 05, 2016 08:48
[2016-08-05] MEDS: PERCOCET 5MG/325MG TAB PO PRN ×3 (08:49→22:14)
[2016-08-05] MEDS: DOCUSATE SODIUM 100 MG CAP PO SCH ×2 (08:49→20:34)
[2016-08-05] MEDS: levETIRAcetam 250MG TABLET (KEPPRA) PO SCH ×2 (08:49→20:34)
[2016-08-05] MEDS ORDERED: MORPHINE 2 MG/ML 1ML SYRINGE IV PRN (09:00)
[2016-08-05 10:00] VITALS: BP 132/70
[2016-08-05 14:00] VITALS: BP 141/83
[2016-08-05] MEDS: ATORVASTATIN 20 MG TAB PO SCH (20:33)
[2016-08-05] MEDS: FINASTERIDE 5 MG TAB PO SCH (20:34)
[2016-08-05 22:00] VITALS: BP 145/65
[2016-08-06 06:00] VITALS: BP 146/77
[2016-08-06] MEDS: PERCOCET 5MG/325MG TAB PO PRN (06:42)
[2016-08-06 06:54] LABS: MEAN CORPUSCULAR HEMOGLOBIN 30.9 pg (27.0-33.0); MEAN CORPUSCULAR HGB CONC 33.7 g/dl (32.0-36.5); MEAN CORPUSCULAR VOLUME 91.5 fl (80.0-96.0); RED CELL DISTRIBUTION WIDTH 13.3 % (11.5-14.5); WHITE BLOOD COUNT 10.8 K/mm3 (4.0-10.0)
[2016-08-06 07:11] LABS: ANION GAP 6 MEQ/L (8-16); BLOOD UREA NITROGEN 22 MG/DL (7-18); CALCIUM LEVEL 8.2 MG/DL (8.8-10.2); CARBON DIOXIDE LEVEL 28 MEQ/L (21-32); CHLORIDE LEVEL 105 MEQ/L (98-107); CREATININE FOR GFR 1.13 MG/DL (0.70-1.30); GLOMERULAR FILTRATION RATE > 60.0 (>42); GLUCOSE, FASTING 117 MG/DL (83-110); POTASSIUM SERUM 3.9 MEQ/L (3.5-5.1); SODIUM LEVEL 139 MEQ/L (136-145)
--- NOTE | 2016-08-06 08:30 | IPNPDOC ---
Assessment/Plan Date Seen The patient was seen on 08/06/16. Patient Summary 76 y/o M POD2 s/p right robotic partial nephrectomy. Doing well. UOP is excellent. Cr is trending down. Hb is stable. Plan/VTE VTE Prophylaxis Ordered?: Yes VTE Exclusion Mechanical Proph: N/A:VTE Prophy Ordered Plan/Urinary Catheter Urinary Catheter: Other Catheter: (keep catheter in place as the patient is in chronic urinary retention due to BPH) Plan - d/c MANN drain - percocet prn pain - ambulate - SCDs - incentive spirometry - discharge home today w/ catheter Subjective Review oF Systems Chief Complaint The patient is a 76-year-old male admitted with a reason for visit of Renal Mass. Events since Last Encounter No acute events o/n. Good pain control. No n/v. No chest pain or SOB. Ambulating well. No f/c/ns. Objective Physical Examination General Exam: Alert, Cooperative, No Acute Distress ENT EXAM: Atraumatic ABDOMEN EXAM: Soft, Tenderness (appropriately tender), Other (incisions clean/ dry/intact; MANN draining serosanguinous output) Skin Exam: Nl turgor and temperature Neuro Exam: Normal Speech Psych Exam: Mental status NL, Mood NL Other physical findings catheter draining clear urine Vital Signs/I&O Vital Signs Date Time Temp Pulse Resp B/P (MAP) Pulse Ox O2 Delivery O2 Flow Rate FiO2 08/06/16 08:18 Room Air 08/06/16 07:12 20 08/06/16 06:00 100.1 80 146/77 (100) 95 08/05/16 05:41 2.0 I&O- Last 24 Hours up to 6 AM 08/06/16 06:00 Intake Total 2076 ml Output Total 2320 ml Balance -244 ml Laboratory Data Labs 24H Laboratory Tests 2 08/05/16 12:04: Bedside Glucose (Misc Panel) 149H 08/05/16 16:34: Bedside Glucose (Misc Panel) 135H 08/05/16 21:05: Bedside Glucose (Misc Panel) 114H 08/06/16 06:21: Anion Gap 6L, Glomerular Filtration Rate > 60.0, Blood Urea Nitrogen 22H, Creatinine 1.13, Sodium Level 139, Potassium Level 3.9, Chloride Level 105, Carbon Dioxide Level 28, Calcium Level 8.2L CBC/BMP Laboratory Tests 08/06/16 06:21 Red Blood Count 3.50 L, Mean Corpuscular Volume 91.5, Mean Corpuscular Hemoglobin 30.9, Mean Corpuscular Hemoglobin Concent 33.7, Red Cell Distribution Width 13.3, Calcium Level 8.2 L FSBS Laboratory Tests Test 08/05/16 12:04 08/05/16 16:34 08/05/16 21:05 Range/Units Bedside Glucose (Misc Panel) 149 135 114 83-110 MG/DL MILADIS MOULTON MD August 06, 2016 08:30
[2016-08-06] MEDS: DOCUSATE SODIUM 100 MG CAP PO SCH (09:03)
[2016-08-06] MEDS: HumaLOG INSULIN (NovoLOG) PER UNIT SC SCH (09:03)
[2016-08-06] MEDS: levETIRAcetam 250MG TABLET (KEPPRA) PO SCH (09:03)
[2016-08-06] MEDS ORDERED: COLA100C3 PO (10:08)
[2016-08-06] MEDS ORDERED: PROS5TAB PO (10:08)
[2016-08-06] MEDS ORDERED: TYLE325T5 PO (10:08)
[2016-08-06] MEDS ORDERED: OXYC1TAB23 PO (10:19)
--- NOTE | 2016-08-07 21:21 | DSES ---
DATE OF ADMISSION: 08/04/2016 DATE OF DISCHARGE: 08/06/2016 ADMISSION DIAGNOSIS: Right renal mass. DISCHARGE DIAGNOSIS: Right renal mass. ADMITTING PHYSICIAN: Moody Garner MD. DISCHARGE PHYSICIAN: Moody Garner MD. PROCEDURES PERFORMED: Right robotic-assisted partial nephrectomy and cyst decortication. HISTORY OF PRESENT ILLNESS: This is a 76-year-old male previously found to have an approximately 2.5 cm enhancing right renal mass concerning for cancer. He elected to undergo the above-listed procedure for treatment, and was admitted to the hospital postoperatively. HOSPITAL COURSE: The patient's postoperative course was unremarkable. On postoperative day one, he was ambulating well and was tolerating a regular diet. His urine output was excellent, and his creatinine did go up as expected a little bit on postoperative day one to 1.3. By postoperative day two, his creatinine had come down to normal at 1.1 and has continued to make excellent urine output. His hemoglobin levels remained stable, and he ambulated well and tolerated a regular diet. His pain was well controlled with pain medications. He was therefore deemed ready for discharge home on postoperative day two. His Isak-Gar drain was removed prior to discharge. Of note, this patient has chronic urinary retention due to benign prostatic hypertrophy (BPH) and, therefore, his catheter was kept in place and he was discharged with it in place on postoperative day two. The patient will followup up in clinic in a few weeks to discuss pathology results and for a postoperative check.
== END 2016-08-06 11:35 | disposition home or self-care (01) | DRG 700 ==
LOC: M OR 08-04 09:31 → M MS5PR 08-04 21:35
PROVIDERS: ADMIT Urology; ATTEND Urology
PROC: 0T9 Urinary System, Drainage (ICD-10-PCS; 2016-08-04)
PROC: 8E0W4CZ Robotic Assisted Procedure of Trunk Region, Percutaneous Endoscopic Approach (ICD-10-PCS; 2016-08-04)
PROC: 0TB04ZX Excision of Right Kidney, Percutaneous Endoscopic Approach, Diagnostic (ICD-10-PCS; principal; 2016-08-04 12:40)
DX: N28.1 Cyst of kidney, acquired (principal); D30.01 Benign neoplasm of right kidney; N18.3 Chronic kidney disease, stage 3 (moderate); E11.9 Type 2 diabetes mellitus without complications; G40.909 Epilepsy, unspecified, not intractable, without status epilepticus; I12.9 Hypertensive chronic kidney disease with stage 1 through stage 4 chronic kidney disease, or unspecified chronic kidney disease; N40.1 Benign prostatic hyperplasia with lower urinary tract symptoms; D50.9 Iron deficiency anemia, unspecified; E78.2 Mixed hyperlipidemia; R97.20 Elevated prostate specific antigen [PSA]; I44.7 Left bundle-branch block, unspecified; Z87.891 Personal history of nicotine dependence; Z88.0 Allergy status to penicillin; Z79.899 Other long term (current) drug therapy

== ENCOUNTER → 2016-07-21 | Outpatient (CLI) | payer MEDICARE ==
[2016-07-21 08:32] LABS: MEAN CORPUSCULAR HEMOGLOBIN 31.1 pg (27.0-33.0); MEAN CORPUSCULAR HGB CONC 34.1 g/dl (32.0-36.5); RED CELL DISTRIBUTION WIDTH 13.5 % (11.5-14.5); WHITE BLOOD COUNT 5.1 K/mm3 (4.0-10.0)
[2016-07-21 08:44] LABS: INR 1.02
[2016-07-21 08:56] LABS: ALBUMIN 3.5 GM/DL (3.2-5.2); ALKALINE PHOSPHATASE 86 U/L (45-117); ALT/SGPT 31 U/L (12-78); ANION GAP 7 MEQ/L (8-16); AST/SGOT 21 U/L (15-37); BILIRUBIN,TOTAL 0.7 MG/DL (0.2-1.0); BLOOD UREA NITROGEN 17 MG/DL (7-18); CALCIUM LEVEL 8.7 MG/DL (8.8-10.2); CARBON DIOXIDE LEVEL 26 MEQ/L (21-32); CHLORIDE LEVEL 107 MEQ/L (98-107); CREATININE FOR GFR 0.96 MG/DL (0.70-1.30); GLOMERULAR FILTRATION RATE > 60.0 (>42); GLUCOSE, FASTING 93 MG/DL (83-110); POTASSIUM SERUM 4.1 MEQ/L (3.5-5.1); SODIUM LEVEL 140 MEQ/L (136-145)
--- NOTE | 2016-07-21 09:37 | REP ---
Chest two views HISTORY: Preop Comparison: 06/25/2010 The lungs are clear. The heart is normal in size. The pulmonary vasculature is normal in appearance. The bony structure is intact. IMPRESSION: No acute disease. Signed by Noel Tejeda MD 07/21/2016 09:28 A
--- NOTE | 2016-07-23 17:39 | ECGEPIP ---
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
== END ==
LOC: M LAB 07:56
PROVIDERS: ATTEND Urology
DX: Z01.818 Encounter for other preprocedural examination (principal); N28.89 Other specified disorders of kidney and ureter; R00.1 Bradycardia, unspecified; I45.10 Unspecified right bundle-branch block

== ENCOUNTER → 2016-08-25 | Outpatient (CLI) | payer MEDICARE ==
[~2016-08-25] MED LIST changes: +COLA100C3 PO; +OXYC1TAB23 PO; +PROS5TAB PO; +TYLE325T5 PO
[2016-08-25 13:02] LABS: MEAN CORPUSCULAR HEMOGLOBIN 29.8 pg (27.0-33.0); MEAN CORPUSCULAR HGB CONC 32.5 g/dl (32.0-36.5); MEAN CORPUSCULAR VOLUME 91.5 fl (80.0-96.0); RED CELL DISTRIBUTION WIDTH 12.9 % (11.5-14.5); WHITE BLOOD COUNT 5.9 K/mm3 (4.0-10.0)
[2016-08-25 13:29] LABS: ANION GAP 4 MEQ/L (8-16); BLOOD UREA NITROGEN 21 MG/DL (7-18); CALCIUM LEVEL 9.1 MG/DL (8.8-10.2); CARBON DIOXIDE LEVEL 30 MEQ/L (21-32); CHLORIDE LEVEL 105 MEQ/L (98-107); CREATININE FOR GFR 1.01 MG/DL (0.70-1.30); GLOMERULAR FILTRATION RATE > 60.0 (>42); GLUCOSE, FASTING 79 MG/DL (83-110); POTASSIUM SERUM 4.1 MEQ/L (3.5-5.1); SODIUM LEVEL 139 MEQ/L (136-145)
== END ==
LOC: M SMT 08:42
PROVIDERS: ATTEND Urology
DX: D49.511 Neoplasm of unspecified behavior of right kidney (principal)

== ENCOUNTER → 2016-09-24 | Outpatient (REF) | payer MEDICARE ==
[~2016-09-24] MED LIST changes: -ATOR40TA PO; +ATOR40TA75 PO; -COLA100C3 PO; +COLA100C5 PO; +LEVA1TAB PO; -LEVA250T PO; +LEVO500T3 PO; -LEVO500T32 PO
[2016-09-24 11:48] LABS: BASO % 0.4 % (0.0-1.0); EOS # 0.3 K/mm3 (0.0-0.50); EOS % 3.8 % (0.0-3.0); LARGE UNSTAINED CELL # 0.1 K/mm3 (0.0-0.4); LARGE UNSTAINED CELL % 1.8 % (0.0-4.0); LYMPH # 1.6 K/mm3 (1.5-4.5); LYMPH % 20.2 % (24.0-44.0); MEAN CORPUSCULAR HEMOGLOBIN 29.1 pg (27.0-33.0); MEAN CORPUSCULAR HGB CONC 32.4 g/dl (32.0-36.5); MEAN CORPUSCULAR VOLUME 89.8 fl (80.0-96.0); MONO # 0.6 K/mm3 (0.0-0.8); MONO % 7.7 % (0.0-5.0); NEUTROPHILS # 5.3 K/mm3 (1.8-7.7); NEUTROPHILS % 66.1 % (36.0-66.0); PLATELET COUNT, AUTOMATED 264 k/mm3 (150-450); RED CELL DISTRIBUTION WIDTH 13.3 % (11.5-14.5); RETIC HEMOGLOBIN CONTENT CHr 30.5 PG (24-36); RETICULOCYTE ABSOLUTE ADVIA212 64 x10(9)/L (17-77); WHITE BLOOD COUNT 8.1 K/mm3 (4.0-10.0)
[2016-09-24 11:56] LABS: PERCENT SATURATION 15.4 % (19.7-37.4)
[2016-09-24 11:58] LABS: ANION GAP 8 MEQ/L (8-16); BLOOD UREA NITROGEN 20 MG/DL (7-18); CALCIUM LEVEL 8.9 MG/DL (8.8-10.2); CARBON DIOXIDE LEVEL 27 MEQ/L (21-32); CHLORIDE LEVEL 107 MEQ/L (98-107); CREATININE FOR GFR 1.01 MG/DL (0.70-1.30); GLOMERULAR FILTRATION RATE > 60.0 (>42); GLUCOSE, FASTING 84 MG/DL (83-110); SODIUM LEVEL 142 MEQ/L (136-145)
[2016-09-24 12:09] LABS: MEAN CORPUSCULAR HEMOGLOBIN 29.1 pg (27.0-33.0); MEAN CORPUSCULAR HGB CONC 32.8 g/dl (32.0-36.5); MEAN CORPUSCULAR VOLUME 88.8 fl (80.0-96.0); RED CELL DISTRIBUTION WIDTH 13.6 % (11.5-14.5); WHITE BLOOD COUNT 7.4 K/mm3 (4.0-10.0)
== END ==
LOC: M LABSMT 08:15
PROVIDERS: ATTEND Urology
DX: Z01.812 Encounter for preprocedural laboratory examination (principal); N40.1 Benign prostatic hyperplasia with lower urinary tract symptoms; D50.9 Iron deficiency anemia, unspecified; E11.9 Type 2 diabetes mellitus without complications; Z12.5 Encounter for screening for malignant neoplasm of prostate
CPT/HCPCS: 36415; 80048; 82607; 82728; 83036; 83550; 85025; 85027; 85046; 87086; G0103

== ENCOUNTER → 2016-09-29 | Outpatient (REF) | payer MEDICARE ==
[2016-09-29 20:00] LABS: YEAST LIKE CELL URINE AUTO SMALL
== END ==
LOC: M SMT 17:38
PROVIDERS: ATTEND Urology
DX: Z01.818 Encounter for other preprocedural examination (principal); N40.1 Benign prostatic hyperplasia with lower urinary tract symptoms; N39.0 Urinary tract infection, site not specified

== ENCOUNTER → 2016-10-02 | Day surgery (SDC) | payer MEDICARE ==
[~2016-10-02] VITALS: Ht 167.6 cm; Wt 78.0 kg
[~2016-10-02] MED LIST changes: +ACETAMINOPHEN TAB 650MG DOSE (2X325MG) PO PRN; +FUROSEMIDE 100 MG/10 ML VIAL (J1940) As Ordered ONE; +LIDOCAINE 2% INJ 100 MG/5 ML SDV (FOR ANES.) As Ordered ONE; +LR 1,000 ML IV ONE; +LR 1,000 ML IV SCH; +MIDAZOLAM INJ 2 MG/2 ML VIAL (J2250) As Ordered ONE; +ONDANSETRON 4MG/2ML VIAL (J2405) As Ordered ONE; +ONDANSETRON 4MG/2ML VIAL (J2405) IV PRN; +PROPOFOL 200 MG/20 ML VIAL As Ordered ONE; +dexameTHASONE 4 MG/ML 1ML VIAL (J1100) As Ordered ONE; +ePHEDrine SULFATE 25 MG/5 ML(5MG/ML) SYRINGE As Ordered ONE; +fentaNYL 100 MCG/2 ML INJECTION (J3010) As Ordered ONE; +fentaNYL 100 MCG/2 ML INJECTION (J3010) IV PRN
[2016-10-02 19:55] VITALS: BP 140/94
--- NOTE | 2016-10-03 12:32 | RO ---
DATE OF PROCEDURE: 10/02/2016 PREPROCEDURE DIAGNOSIS: Benign prostatic hyperplasia with urinary retention. POSTPROCEDURE DIAGNOSIS: Benign prostatic hyperplasia with urinary retention. PROCEDURE: Cystoscopy, button transurethral electrovaporization of the prostate. 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 OPERATIVE INDICATIONS: This is a 76-year-old male with benign prostatic hyperplasia and urinary retention. He has failed medical therapy. It is therefore recommended that he be brought to the operating room today for the above listed procedure. DESCRIPTION OF PROCEDURE: The patient was brought to the operating room and general anesthesia was induced. Prophylactic antibiotics were infused. He was then placed in the dorsal lithotomy position and prepped and draped in the usual sterile fashion. At this point, I tried to insert the button resectoscope using the visual obturator, but the urethral meatus was too narrow. I therefore dilated the ureteral meatus to a 32-Divehi using curved metal sounds. After that point, I was able to advance the button resectoscope into the urethra and into the bladder. Of note, the patient had trilobar benign prostatic hyperplasia with a very prominent median lobe growing into the bladder. I also made note of the location of the ureteral orifices and they were not close to the bladder neck. I also made note of the location of the verumontanum. At this point, I began vaporizing hyperplastic tissue by beginning first on the median lobe and then circumferentially at the bladder neck. Once that was done, I then started vaporizing hyperplastic tissue on both lateral lobes. I kept doing this until there was a clear channel established. During the procedure, I made sure not to vaporize too close to the ureteral orifices or distal to the verumontanum. Once there was a clear channel established, hemostasis was obtained using the coagulation current. At this point, hemostasis was excellent and then the button resectoscope was removed. I then inserted an 18 Divehi Martin catheter into the bladder and the balloon was filled with 15 mL of sterile water. At the end of the procedure, urine drained very light pink. The catheter as then connected to gravity drainage. This marked conclusion of the procedure. The patient was taken out of dorsal lithotomy position, awakened from anesthesia and transported to the recovery room in stable condition. ESTIMATED BLOOD LOSS: 25 mL. COMPLICATIONS: None. SPECIMENS: None. PLAN: The patient will followup in the clinic in about 1 week for catheter removal and voiding trial. DEJUAN
--- NOTE | 2016-10-03 18:49 | ECGEPIP ---
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 Electronically Signed On 10-03-2016 18:49:25 EDT by Nirmal Coats
== END | disposition home or self-care (01) ==
LOC: M SDC 08:41
PROVIDERS: ATTEND Urology
DX: N40.1 Benign prostatic hyperplasia with lower urinary tract symptoms (principal); R33.9 Retention of urine, unspecified; N39.0 Urinary tract infection, site not specified; D49.511 Neoplasm of unspecified behavior of right kidney; N32.89 Other specified disorders of bladder; G40.909 Epilepsy, unspecified, not intractable, without status epilepticus; Z86.73 Personal history of transient ischemic attack (TIA), and cerebral infarction without residual deficits; I12.9 Hypertensive chronic kidney disease with stage 1 through stage 4 chronic kidney disease, or unspecified chronic kidney disease; E11.22 Type 2 diabetes mellitus with diabetic chronic kidney disease; E78.2 Mixed hyperlipidemia; D50.9 Iron deficiency anemia, unspecified; R97.20 Elevated prostate specific antigen [PSA]; N18.3 Chronic kidney disease, stage 3 (moderate); I44.7 Left bundle-branch block, unspecified; Z87.891 Personal history of nicotine dependence; Z88.0 Allergy status to penicillin; Z79.899 Other long term (current) drug therapy
CPT/HCPCS: 52601; 93005; J0690; J1100; J1940; J2250; J2405; J3010

== ENCOUNTER → 2017-03-29 | Outpatient (REF) | payer MEDICARE ==
[2017-03-29 12:50] LABS: ALBUMIN 3.9 GM/DL (3.2-5.2); ALBUMIN/GLOBULIN RATIO 1.22 (1.00-1.93); ALKALINE PHOSPHATASE 78 U/L (45-117); ALT/SGPT 34 U/L (12-78); ANION GAP 7 MEQ/L (8-16); AST/SGOT 28 U/L (7-37); BILIRUBIN,TOTAL 1.3 MG/DL (0.2-1.0); BLOOD UREA NITROGEN 19 MG/DL (7-18); CALCIUM LEVEL 8.8 MG/DL (8.8-10.2); CARBON DIOXIDE LEVEL 28 MEQ/L (21-32); CHLORIDE LEVEL 106 MEQ/L (98-107); CREATININE FOR GFR 1.01 MG/DL (0.70-1.30); FERRITIN 57 NG/ML (26-388); GLOMERULAR FILTRATION RATE > 60.0 (>42); GLUCOSE, FASTING 91 MG/DL (83-110); IRON (FE) 120 UG/DL (65-175); PERCENT SATURATION 35.6 % (19.7-50.0); SODIUM LEVEL 141 MEQ/L (136-145); TOTAL IRON BINDING CAPACITY 337 UG/DL (250-450); TOTAL PROTEIN 7.1 GM/DL (6.4-8.2)
[2017-03-29 12:59] LABS: BASO % 0.2 % (0.0-1.0); EOS # 0.1 10^3/uL (0.0-0.50); EOS % 1.4 % (0.0-3.0); HEMATOCRIT 43.3 % (42.0-52.0); HEMOGLOBIN 14.5 g/dl (14.0-18.0); IMMATURE GRANULOCYTE % 0.4 % (0-0); LYMPH # 1.6 10^3/uL (1.5-4.5); LYMPH % 28.3 % (24.0-44.0); MEAN CORPUSCULAR HEMOGLOBIN 29.5 pg (27.0-33.0); MEAN CORPUSCULAR HGB CONC 33.5 g/dl (32.0-36.5); MONO # 0.6 10^3/uL (0.0-0.8); MONO % 11.2 % (0.0-5.0); NEUTROPHILS # 3.3 10^3/uL (1.8-7.7); NEUTROPHILS % 58.5 % (36.0-66.0); PLATELET COUNT, AUTOMATED 222 10^3/uL (150-450); RED BLOOD COUNT 4.92 10^6/uL (4.30-6.10); WHITE BLOOD COUNT 5.6 10^3/uL (4.0-10.0)
== END ==
LOC: M SFHCPLAZ 09:38
DX: D50.9 Iron deficiency anemia, unspecified (principal); N18.3 Chronic kidney disease, stage 3 (moderate)
CPT/HCPCS: 83550

== ENCOUNTER 2017-09-23 15:36 | Emergency (ER) | payer MEDICARE ==
[2017-09-23] MEDS: CYCLOBENZAPRINE 5MG TABLET PO (16:47)
[2017-09-23] MEDS: PERCOCET 5MG/325MG TAB PO (16:47)
== END 2017-09-23 19:19 | disposition home or self-care (01) ==
LOC: M ED 15:36
DX: M51.36 Other intervertebral disc degeneration, lumbar region (principal); M48.061 Spinal stenosis, lumbar region without neurogenic claudication; M54.32 Sciatica, left side; M79.605 Pain in left leg; Z91.81 History of falling; I12.9 Hypertensive chronic kidney disease with stage 1 through stage 4 chronic kidney disease, or unspecified chronic kidney disease; E78.5 Hyperlipidemia, unspecified; E11.22 Type 2 diabetes mellitus with diabetic chronic kidney disease; R56.9 Unspecified convulsions; Z86.73 Personal history of transient ischemic attack (TIA), and cerebral infarction without residual deficits; N40.0 Benign prostatic hyperplasia without lower urinary tract symptoms; N18.3 Chronic kidney disease, stage 3 (moderate); K57.92 Diverticulitis of intestine, part unspecified, without perforation or abscess without bleeding; D64.9 Anemia, unspecified; Z90.5 Acquired absence of kidney; Z87.891 Personal history of nicotine dependence; Z88.0 Allergy status to penicillin; Z79.899 Other long term (current) drug therapy
CPT/HCPCS: 93971

== ENCOUNTER → 2017-12-06 | Outpatient (REF) | payer MEDICARE ==
[2017-12-06 12:44] LABS: BASO % 0.7 % (0.0-1.0); EOS # 0.2 10^3/uL (0.0-0.50); EOS % 2.5 % (0.0-3.0); HEMATOCRIT 44.2 % (42.0-52.0); HEMOGLOBIN 14.7 g/dl (13.5-17.5); IMMATURE GRANULOCYTE % 0.7 % (0-3.0); LYMPH # 1.7 10^3/uL (1.5-4.5); LYMPH % 27.4 % (24.0-44.0); MEAN CORPUSCULAR HEMOGLOBIN 29.9 pg (27.0-33.0); MEAN CORPUSCULAR HGB CONC 33.3 g/dl (32.0-36.5); MEAN CORPUSCULAR VOLUME 89.8 fl (80.0-96.0); MONO # 0.6 10^3/uL (0.0-0.8); MONO % 10.2 % (0.0-5.0); NEUTROPHILS # 3.6 10^3/uL (1.8-7.7); NEUTROPHILS % 58.5 % (36.0-66.0); PLATELET COUNT, AUTOMATED 194 10^3/uL (150-450); RED BLOOD COUNT 4.92 10^6/uL (4.30-6.10); RED CELL DISTRIBUTION WIDTH 12.7 % (11.5-14.5); WHITE BLOOD COUNT 6.1 10^3/uL (4.0-10.0)
[2017-12-06 13:17] LABS: ALBUMIN 3.5 GM/DL (3.2-5.2); ALKALINE PHOSPHATASE 93 U/L (45-117); ALT/SGPT 30 U/L (12-78); ANION GAP 9 MEQ/L (8-16); AST/SGOT 21 U/L (7-37); BILIRUBIN,TOTAL 1.2 MG/DL (0.2-1.0); BLOOD UREA NITROGEN 16 MG/DL (7-18); CALCIUM LEVEL 8.5 MG/DL (8.8-10.2); CARBON DIOXIDE LEVEL 27 MEQ/L (21-32); CHLORIDE LEVEL 106 MEQ/L (98-107); CREATININE FOR GFR 1.09 MG/DL (0.70-1.30); GLOMERULAR FILTRATION RATE > 60.0 (>42); GLUCOSE, FASTING 102 MG/DL (70-100); POTASSIUM SERUM 4.2 MEQ/L (3.5-5.1); PROSTATIC SPECIFIC AG MONITOR 5.03 NG/ML (< 4.0); SODIUM LEVEL 142 MEQ/L (136-145)
[2017-12-06 15:55] LABS: ESTIMATED AVERAGE GLUCOSE 131 MG/DL (60-110); HEMOGLOBIN A1c 6.2 %
[2017-12-09 00:06] LABS: LEVETIRACETAM (KEPPRA) 7.4 ug/mL (10.0-40.0)
== END ==
LOC: M SFHCPLAZ 07:33
DX: D50.9 Iron deficiency anemia, unspecified (principal); E11.9 Type 2 diabetes mellitus without complications; G40.909 Epilepsy, unspecified, not intractable, without status epilepticus; R97.20 Elevated prostate specific antigen [PSA]
CPT/HCPCS: 83735

== ENCOUNTER 2018-03-31 06:23 | Day surgery (SDC) | payer MEDICARE ==
[~2018-03-31] VITALS: Ht 185.4 cm; Wt 81.2 kg
[~2018-03-31 06:23] MED LIST changes: -ACETAMINOPHEN TAB 650MG DOSE (2X325MG) PO PRN; +CYCL5TAB PO; +FLOM0.4C39 PO; -FLOM5CAP PO; -FUROSEMIDE 100 MG/10 ML VIAL (J1940) As Ordered ONE; -LEVA1TAB PO; +LEVA250T13 PO; -LIDOCAINE 2% INJ 100 MG/5 ML SDV (FOR ANES.) As Ordered ONE; +LISI-538 PO; +LISI40TA PO; -LISI40TAB PO; -LR 1,000 ML IV ONE; -LR 1,000 ML IV SCH; -MIDAZOLAM INJ 2 MG/2 ML VIAL (J2250) As Ordered ONE; +NORCOTAB PO; +NS 1,000 ML IV ONE; -ONDANSETRON 4MG/2ML VIAL (J2405) As Ordered ONE; -ONDANSETRON 4MG/2ML VIAL (J2405) IV PRN; -PROPOFOL 200 MG/20 ML VIAL As Ordered ONE; -dexameTHASONE 4 MG/ML 1ML VIAL (J1100) As Ordered ONE; -ePHEDrine SULFATE 25 MG/5 ML(5MG/ML) SYRINGE As Ordered ONE; -fentaNYL 100 MCG/2 ML INJECTION (J3010) As Ordered ONE; -fentaNYL 100 MCG/2 ML INJECTION (J3010) IV PRN
[2018-03-31] MEDS ORDERED: PROPOFOL 200 MG/20 ML VIAL As Ordered ONE ×2 (07:10→08:03)
--- NOTE | 2018-03-31 08:08 | ROOR ---
Patient Name: Saji Chow Procedure Date: 03/31/2018 7:31 AM Date of : 1940 Age: 77 Room: [facility] Gender: Male Note Status: Finalized Procedure: Colonoscopy Indications: High risk colon cancer surveillance: Personal history of colonic polyps, Last colonoscopy: June 2014 Providers: Juan Manuel GREENBERG MD Referring MD: Chris Melo MD Requesting Provider: Medicines: Monitored Anesthesia Care Complications: No immediate complications. Procedure: Pre-Anesthesia Assessment: - The heart rate, respiratory rate, oxygen saturations, blood pressure, adequacy of pulmonary ventilation, and response to care were monitored throughout the procedure. The Colonoscope was introduced through the anus and advanced to the cecum, identified by appendiceal orifice and ileocecal valve. The colonoscopy was performed without difficulty. The patient tolerated the procedure well. The quality of the bowel preparation was good. Findings: The perianal and digital rectal examinations were normal. 12 semi-sessile polyps were found from the transverse colon to the rectum. The polyps were 4 to 6 mm in size. These polyps were removed with a cold snare. Resection and retrieval were complete. Multiple medium-mouthed diverticula were found in the sigmoid colon and descending colon. Internal hemorrhoids were found during retroflexion. The hemorrhoids were medium-sized. The exam was otherwise normal throughout the examined colon. Impression: - 12 polyps (4-6 mm) from transverse colon to rectum, removed with a cold snare. Resected and retrieved. - Diverticulosis in the sigmoid colon and in the descending colon. - Internal hemorrhoids. Recommendation: - Repeat colonoscopy in 1-2 years for surveillance of multiple polyps (>10). - Repeat colonoscopy for surveillance based on pathology results. - Telephone endoscopist for pathology results in 2 weeks. Juan Manuel Greenberg MD Juan Manuel GREENBERG MD 03/31/2018 8:08:09 AM This report has been signed electronically. Number of Addenda: 0 Note Initiated On: 03/31/2018 7:31 AM Estimated Blood Loss: Estimated blood loss: none.
[2018-03-31 08:25] VITALS: BP 124/80
== END 2018-03-31 08:27 | disposition home or self-care (01) ==
LOC: M OPP 06:23
PROVIDERS: ATTEND Internal Medicine Gastroenterology
DX: D12.6 Benign neoplasm of colon, unspecified (principal); K57.30 Diverticulosis of large intestine without perforation or abscess without bleeding; K64.8 Other hemorrhoids; Z86.010 Personal history of colon polyps

== ENCOUNTER → 2018-04-14 | Outpatient (REF) | payer MEDICARE ==
[~2018-04-14] MED LIST changes: -NS 1,000 ML IV ONE
[2018-04-14 10:46] LABS: BASO % 0.5 % (0.0-1.0); EOS # 0.1 10^3/uL (0.0-0.50); EOS % 1.4 % (0.0-3.0); HEMATOCRIT 44.8 % (42.0-52.0); HEMOGLOBIN 15.1 g/dl (13.5-17.5); LYMPH # 1.7 10^3/uL (1.5-4.5); LYMPH % 26.8 % (24.0-44.0); MEAN CORPUSCULAR HEMOGLOBIN 30.3 pg (27.0-33.0); MEAN CORPUSCULAR HGB CONC 33.7 g/dl (32.0-36.5); MEAN CORPUSCULAR VOLUME 89.8 fl (80.0-96.0); MONO # 0.7 10^3/uL (0.0-0.8); MONO % 10.4 % (0.0-5.0); NEUTROPHILS # 3.9 10^3/uL (1.8-7.7); NEUTROPHILS % 60.6 % (36.0-66.0); PLATELET COUNT, AUTOMATED 211 10^3/uL (150-450); RED BLOOD COUNT 4.99 10^6/uL (4.30-6.10); WHITE BLOOD COUNT 6.5 10^3/uL (4.0-10.0)
[2018-04-14 10:58] LABS: ALBUMIN 3.8 GM/DL (3.2-5.2); ALT/SGPT 34 U/L (12-78); BILIRUBIN,TOTAL 1.2 MG/DL (0.2-1.0); BLOOD UREA NITROGEN 24 MG/DL (7-18); C REACTIVE PROTEIN QUANTITATIV < 0.30 MG/DL (0.00-0.30); CALCIUM LEVEL 8.9 MG/DL (8.8-10.2); CARBON DIOXIDE LEVEL 27 MEQ/L (21-32); CHLORIDE LEVEL 104 MEQ/L (98-107); CHOLESTEROL LEVEL 143 MG/DL (<200); CHOLESTEROL RISK RATIO 4.333 (<5); CPK CREATINE PHOSPHOKINASE 176 U/L (39-308); CREATININE FOR GFR 0.99 MG/DL (0.70-1.30); GLOMERULAR FILTRATION RATE > 60.0 (>42); GLUCOSE, FASTING 134 MG/DL (70-100); HDL CHOLESTEROL 33 MG/DL (>40); LDL CHOLESTEROL 59 MG/DL (<100); NON-HDL-C 110 MG/DL; POTASSIUM SERUM 4.2 MEQ/L (3.5-5.1); SODIUM LEVEL 139 MEQ/L (136-145); TOTAL PROTEIN 6.8 GM/DL (6.4-8.2); TRIGLYCERIDES LEVEL 255 MG/DL (<150)
[2018-04-14 11:05] LABS: PTH INTACT 58.8 PG/ML (18.5-88.0)
[2018-04-15 10:57] LABS: VITAMIN B12 LEVEL 664 PG/ML (232-1245)
== END ==
LOC: M SFHCPLAZ 07:35
PROVIDERS: ATTEND Family Medicine
DX: I12.9 Hypertensive chronic kidney disease with stage 1 through stage 4 chronic kidney disease, or unspecified chronic kidney disease (principal); E78.2 Mixed hyperlipidemia; N18.3 Chronic kidney disease, stage 3 (moderate); D50.9 Iron deficiency anemia, unspecified

== ENCOUNTER → 2018-08-17 | Outpatient (REF) | payer MEDICARE ==
[~2018-08-17] MED LIST changes: +HYDR-3715 PO; -NORCOTAB PO; -RAPA8CAP PO; +RAPA8CAP4 PO
[2018-08-17 11:11] LABS: BASO % 0.4 % (0.0-1.0); EOS # 0.1 10^3/uL (0.0-0.50); EOS % 2.1 % (0.0-3.0); HEMATOCRIT 44.8 % (42.0-52.0); HEMOGLOBIN 15.2 g/dl (13.5-17.5); LYMPH # 1.8 10^3/uL (1.5-4.5); LYMPH % 31.2 % (24.0-44.0); MEAN CORPUSCULAR HEMOGLOBIN 30.8 pg (27.0-33.0); MEAN CORPUSCULAR HGB CONC 33.9 g/dl (32.0-36.5); MEAN CORPUSCULAR VOLUME 90.9 fl (80.0-96.0); MONO # 0.6 10^3/uL (0.0-0.8); NEUTROPHILS # 3.1 10^3/uL (1.8-7.7); NEUTROPHILS % 55.9 % (36.0-66.0); PLATELET COUNT, AUTOMATED 203 10^3/uL (150-450); RED BLOOD COUNT 4.93 10^6/uL (4.30-6.10); WHITE BLOOD COUNT 5.6 10^3/uL (4.0-10.0)
[2018-08-17 11:53] LABS: HEMOGLOBIN A1c 7.6 %
[2018-08-17 12:02] LABS: BLOOD UREA NITROGEN 21 MG/DL (7-18); CALCIUM LEVEL 8.5 MG/DL (8.8-10.2); CARBON DIOXIDE LEVEL 27 MEQ/L (21-32); CHLORIDE LEVEL 104 MEQ/L (98-107); CREATININE FOR GFR 0.96 MG/DL (0.70-1.30); GLOMERULAR FILTRATION RATE > 60.0 (>42); GLUCOSE, FASTING 121 MG/DL (70-100); POTASSIUM SERUM 4.3 MEQ/L (3.5-5.1); SODIUM LEVEL 140 MEQ/L (136-145)
[2018-08-17 12:03] LABS: ALBUMIN 3.5 GM/DL (3.2-5.2); ALT/SGPT 38 U/L (12-78); BILIRUBIN,TOTAL 1.2 MG/DL (0.2-1.0); FREE T4 0.95 NG/DL (0.76-1.46); MAGNESIUM LEVEL 2.2 MG/DL (1.8-2.4)
== END ==
LOC: M SFHCPLAZ 08:18
PROVIDERS: ATTEND Family Medicine
DX: D50.9 Iron deficiency anemia, unspecified (principal); N18.3 Chronic kidney disease, stage 3 (moderate); E11.9 Type 2 diabetes mellitus without complications

== ENCOUNTER 2018-12-24 06:44 | Emergency (ER) | payer MEDICARE ==
[~2018-12-24] VITALS: Ht 167.6 cm; Wt 83.6 kg
[2018-12-24] MEDS ORDERED: ATOR40TA75 PO (06:57)
[2018-12-24] MEDS ORDERED: ACETAMINOPHEN TAB 650MG DOSE (2X325MG) PO ONE (07:45)
--- NOTE | 2018-12-24 08:12 | REP ---
AP pelvis: No pelvic fracture is identified. No hip fracture is identified. The sacroiliac articulations are unremarkable. There are multiple calcifications, likely phleboliths. Impression: Negative AP pelvis. Hip AP and lateral views: There is no fracture or dislocation. Mineralization and joint space are unremarkable. There are atheromatous calcifications in the femoral artery. Impression: No fracture or dislocation. The symptoms persist or worsen, consider CT or MRI for follow up. Electronically Signed by Serafin Graham MD 12/24/2018 08:02 A
--- NOTE | 2018-12-24 08:14 | REP ---
Lumbar spine five views: Comparison is a lumbar spine CT dated 09/23/2017. There is mild disc space narrowing and L1-2 L2-3 compatible with mild degenerative disc disease. There is advanced disc space narrowing and anterior osteophyte formation and L4-5 and L5 S1 compatible with advanced degenerative disc disease at these levels. The L3-4 disc is unremarkable. Vertebral body heights and alignment are normal. There is no spondylolysis or spondylolisthesis. The pedicles, facets and sacroiliac articulations are unremarkable. Impression: Multilevel degenerative disc disease. Electronically Signed by Serafin Graham MD 12/24/2018 08:05 A
[2018-12-24] MEDS ORDERED: PRED20TA PO (09:13)
[2018-12-24 09:17] VITALS: BP 129/89
== END 2018-12-24 09:26 | disposition home or self-care (01) ==
LOC: M ED 06:44
DX: M54.41 Lumbago with sciatica, right side (principal); M25.551 Pain in right hip; M51.37 Other intervertebral disc degeneration, lumbosacral region; Z86.73 Personal history of transient ischemic attack (TIA), and cerebral infarction without residual deficits; R56.9 Unspecified convulsions; E78.00 Pure hypercholesterolemia, unspecified; I12.9 Hypertensive chronic kidney disease with stage 1 through stage 4 chronic kidney disease, or unspecified chronic kidney disease; K57.92 Diverticulitis of intestine, part unspecified, without perforation or abscess without bleeding; Z87.19 Personal history of other diseases of the digestive system; N18.3 Chronic kidney disease, stage 3 (moderate); N40.0 Benign prostatic hyperplasia without lower urinary tract symptoms; E11.22 Type 2 diabetes mellitus with diabetic chronic kidney disease; D75.9 Disease of blood and blood-forming organs, unspecified; Z79.899 Other long term (current) drug therapy; Z87.891 Personal history of nicotine dependence

== ENCOUNTER → 2019-05-25 | Outpatient (REF) | payer MEDICARE ==
[~2019-05-25] MED LIST changes: -GLIM1TAB PO; +GLIM1TAB4 PO; +PRED20TA PO
[2019-05-25 12:42] LABS: ALBUMIN 4.1 GM/DL (3.2-5.2); ALT/SGPT 34 U/L (12-78); BILIRUBIN,TOTAL 1.3 MG/DL (0.2-1.0); BLOOD UREA NITROGEN 28 MG/DL (7-18); CALCIUM LEVEL 9.3 MG/DL (8.8-10.2); CARBON DIOXIDE LEVEL 25 MEQ/L (21-32); CHLORIDE LEVEL 105 MEQ/L (98-107); CREATININE FOR GFR 1.19 MG/DL (0.70-1.30); GLOMERULAR FILTRATION RATE > 60.0 (>42); GLUCOSE, FASTING 243 MG/DL (70-100); POTASSIUM SERUM 3.9 MEQ/L (3.5-5.1); PTH INTACT 52.3 PG/ML (18.5-88.0); SODIUM LEVEL 138 MEQ/L (136-145); TOTAL 25(OH) VITAMIN D 31.9 NG/ML (30.0-100.0); TOTAL PROTEIN 7.3 GM/DL (6.4-8.2)
[2019-05-25 12:44] LABS: HEMOGLOBIN A1c 7.1 %
== END ==
LOC: M SFHCPLAZ 08:59
PROVIDERS: ATTEND Family Medicine
DX: D50.9 Iron deficiency anemia, unspecified (principal); I10 Essential (primary) hypertension; E11.9 Type 2 diabetes mellitus without complications; E55.9 Vitamin D deficiency, unspecified; Z79.899 Other long term (current) drug therapy

== ENCOUNTER → 2019-06-16 | Outpatient (REF) | payer MEDICARE ==
[2019-06-16 17:29] LABS: ALBUMIN 4.1 GM/DL (3.2-5.2); ALT/SGPT 39 U/L (12-78); BILIRUBIN,TOTAL 1.3 MG/DL (0.2-1.0); BLOOD UREA NITROGEN 26 MG/DL (7-18); CALCIUM LEVEL 9.4 MG/DL (8.8-10.2); CARBON DIOXIDE LEVEL 26 MEQ/L (21-32); CHLORIDE LEVEL 106 MEQ/L (98-107); CHOLESTEROL LEVEL 140 MG/DL (<200); CHOLESTEROL RISK RATIO 3.684 (<5); GLOMERULAR FILTRATION RATE > 60.0 (>42); GLUCOSE, FASTING 76 MG/DL (70-100); HDL CHOLESTEROL 38 MG/DL (>40); LDL CHOLESTEROL 73 MG/DL (<100); NON-HDL-C 102 MG/DL; POTASSIUM SERUM 4.4 MEQ/L (3.5-5.1); SODIUM LEVEL 138 MEQ/L (136-145); TOTAL PROTEIN 7.7 GM/DL (6.4-8.2); TRIGLYCERIDES LEVEL 144 MG/DL (<150)
[2019-06-16 17:31] LABS: BASO % 0.1 % (0.0-1.0); EOS # 0.1 10^3/uL (0.0-0.5); EOS % 1.1 % (0.0-3.0); HEMATOCRIT 46.5 % (42.0-52.0); HEMOGLOBIN 15.7 g/dl (13.5-17.5); LYMPH # 2.1 10^3/uL (1.5-5.0); LYMPH % 29.8 % (24.0-44.0); MEAN CORPUSCULAR HEMOGLOBIN 30.7 pg (27.0-33.0); MEAN CORPUSCULAR HGB CONC 33.8 g/dl (32.0-36.5); MONO # 0.8 10^3/uL (0.0-0.8); MONO % 10.6 % (0.0-5.0); NEUTROPHILS # 4.2 10^3/uL (1.5-8.5); PLATELET COUNT, AUTOMATED 244 10^3/uL (150-450); RED BLOOD COUNT 5.11 10^6/uL (4.30-6.10); WHITE BLOOD COUNT 7.2 10^3/uL (4.0-10.0)
[2019-06-16 17:33] LABS: VITAMIN B12 LEVEL 1013 PG/ML (247-911)
== END ==
LOC: M SFHCPLAZ 12:23
PROVIDERS: ATTEND Family Medicine
DX: D50.9 Iron deficiency anemia, unspecified (principal); I10 Essential (primary) hypertension; E11.9 Type 2 diabetes mellitus without complications; R97.20 Elevated prostate specific antigen [PSA]
CPT/HCPCS: 80053; 80061; 82607; 83036; 83525; 85025; 85046; G0103

== ENCOUNTER 2019-10-31 07:40 | Day surgery (SDC) | payer MEDICARE ==
[2019-10-31] MEDS ORDERED: propofoL 200 MG/20 ML VIAL ONE (08:16)
--- NOTE | 2019-11-29 11:33 | ROOR ---
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 Procedure: Pre-Anesthesia Assessment: - The heart rate, respiratory rate, oxygen saturations, blood pressure, adequacy of pulmonary ventilation, and response to care were monitored throughout the procedure. The Colonoscope was introduced through the anus and advanced to the cecum, identified by appendiceal orifice and ileocecal valve. The colonoscopy was performed without difficulty. The patient tolerated the procedure well. The quality of the bowel preparation was good. Findings: The perianal and digital rectal examinations were normal. Six sessile polyps were found in the sigmoid colon, descending colon and splenic flexure. The polyps were diminutive in size. These polyps were removed with a cold snare. Resection and retrieval were complete. Multiple small and large-mouthed diverticula were found in the sigmoid colon. Internal hemorrhoids were found during retroflexion. The hemorrhoids were medium-sized. The exam was otherwise without abnormality on direct and retroflexion views. Impression: - Six diminutive polyps in the sigmoid colon, in the descending colon and at the splenic flexure, removed with a cold snare. Resected and retrieved. - Diverticulosis in the sigmoid colon. - Internal hemorrhoids. - The examination was otherwise normal on direct and retroflexion views. Recommendation: - Repeat colonoscopy in 3 years for surveillance. Juan Manuel Greenberg MD Juan Manuel GREENBERG MD 10/31/2019 8:48:26 AM Electronically signed by Juan Manuel GREENBERG MD Number of Addenda: 0 Note Initiated On: 10/31/2019 7:55 AM Estimated Blood Loss: Estimated blood loss: none.
== END 2019-10-31 09:15 | disposition home or self-care (01) ==
LOC: M SDC 07:40
PROVIDERS: ATTEND Internal Medicine Gastroenterology
DX: Z86.010 Personal history of colon polyps (principal); Z09 Encounter for follow-up examination after completed treatment for conditions other than malignant neoplasm; K63.5 Polyp of colon; K64.8 Other hemorrhoids; K57.30 Diverticulosis of large intestine without perforation or abscess without bleeding; E11.9 Type 2 diabetes mellitus without complications; Z79.84 Long term (current) use of oral hypoglycemic drugs; Z79.899 Other long term (current) drug therapy; Z88.0 Allergy status to penicillin

== ENCOUNTER → 2020-01-12 | Outpatient (REF) | payer MEDICARE ==
[2020-01-12 13:33] LABS: BASO % 0.3 % (0.0-1.0); EOS # 0.1 10^3/uL (0.0-0.5); EOS % 1.2 % (0.0-3.0); HEMATOCRIT 46.7 % (42.0-52.0); HEMOGLOBIN 15.4 g/dl (13.5-17.5); LYMPH # 1.9 10^3/uL (1.5-5.0); LYMPH % 25.7 % (24.0-44.0); MEAN CORPUSCULAR HEMOGLOBIN 29.7 pg (27.0-33.0); MEAN CORPUSCULAR VOLUME 90.2 fl (80.0-96.0); MONO # 0.7 10^3/uL (0.0-0.8); MONO % 8.9 % (0.0-5.0); NEUTROPHILS # 4.8 10^3/uL (1.5-8.5); NEUTROPHILS % 63.2 % (36.0-66.0); PLATELET COUNT, AUTOMATED 232 10^3/uL (150-450); RED BLOOD COUNT 5.18 10^6/uL (4.30-6.10); WHITE BLOOD COUNT 7.5 10^3/uL (4.0-10.0)
[2020-01-12 14:00] LABS: HEMOGLOBIN A1c 6.7 %
[2020-01-12 14:08] LABS: ALBUMIN 3.9 GM/DL (3.2-5.2); ALT/SGPT 36 U/L (12-78); BILIRUBIN,TOTAL 1.6 MG/DL (0.2-1.0); BLOOD UREA NITROGEN 25 MG/DL (7-18); CALCIUM LEVEL 9.9 MG/DL (8.8-10.2); CARBON DIOXIDE LEVEL 27 MEQ/L (21-32); CHLORIDE LEVEL 106 MEQ/L (98-107); CREATININE FOR GFR 1.05 MG/DL (0.70-1.30); GLOMERULAR FILTRATION RATE > 60.0 (>35); GLUCOSE, FASTING 154 MG/DL (70-100); POTASSIUM SERUM 4.4 MEQ/L (3.5-5.1); PTH INTACT 42.7 PG/ML (18.5-88.0); SODIUM LEVEL 139 MEQ/L (136-145); TOTAL PROTEIN 7.3 GM/DL (6.4-8.2)
[2020-01-13 21:06] LABS: PSA % FREE 22.6 % (.); PSA FREE 1.04 ng/mL; PSA TOTAL 4.6 ng/mL (0.0-4.0)
== END ==
LOC: M SFHCPLAZ 11:01
PROVIDERS: ATTEND Family Medicine
DX: R97.20 Elevated prostate specific antigen [PSA] (principal); E11.9 Type 2 diabetes mellitus without complications

== ENCOUNTER → 2020-06-14 | Outpatient (REF) | payer MEDICARE ==
[~2020-06-14] MED LIST changes: -LISI-538 PO; +LISI20TA33 PO; -LISI40TA PO; +LISI40TA4 PO
[2020-06-14 10:46] LABS: BASO % 0.3 % (0.0-1.0); EOS # 0.2 10^3/uL (0.0-0.5); EOS % 2.5 % (0.0-3.0); HEMATOCRIT 44.1 % (42.0-52.0); HEMOGLOBIN 14.6 g/dl (13.5-17.5); LYMPH # 1.9 10^3/uL (1.5-5.0); LYMPH % 29.4 % (24.0-44.0); MEAN CORPUSCULAR HEMOGLOBIN 29.8 pg (27.0-33.0); MEAN CORPUSCULAR HGB CONC 33.1 g/dl (32.0-36.5); MONO # 0.6 10^3/uL (0.0-0.8); MONO % 9.3 % (2.0-8.0); NEUTROPHILS # 3.7 10^3/uL (1.5-8.5); PLATELET COUNT, AUTOMATED 222 10^3/uL (150-450); WHITE BLOOD COUNT 6.4 10^3/uL (4.0-10.0)
[2020-06-14 10:59] LABS: HEMOGLOBIN A1c 6.8 %
[2020-06-14 11:12] LABS: CHOLESTEROL RISK RATIO 3.853 (<5); FREE T4 0.98 NG/DL (0.76-1.46); THYROID STIMULATING HORMONE 2.12 uIU/ML (0.358-3.740)
[2020-06-14 11:13] LABS: PTH INTACT 38.1 PG/ML (18.5-88.0); TOTAL 25(OH) VITAMIN D 26.2 NG/ML (30.0-100.0)
== END ==
LOC: M SFHCPLAZ 08:03
PROVIDERS: ATTEND Family Medicine
DX: G40.909 Epilepsy, unspecified, not intractable, without status epilepticus (principal); E11.9 Type 2 diabetes mellitus without complications; E55.9 Vitamin D deficiency, unspecified

== ENCOUNTER → 2020-10-08 | Outpatient (CLI) | payer MEDICARE ==
[2020-10-08 12:07] LABS: HEMATOCRIT 40.5 % (42.0-52.0); HEMOGLOBIN 13.3 g/dl (13.5-17.5); MEAN CORPUSCULAR HGB CONC 32.8 g/dl (32.0-36.5); MEAN CORPUSCULAR VOLUME 91.4 fl (80.0-96.0); PLATELET COUNT, AUTOMATED 234 10^3/uL (150-450); RED BLOOD COUNT 4.43 10^6/uL (4.30-6.10); WHITE BLOOD COUNT 6.3 10^3/uL (4.0-10.0)
[2020-10-08 12:44] LABS: BASOPHILS 1 % (0-1); LYMPHOCYTES 24 % (16-44); MONOCYTES 14 % (0-5); NEUTROPHILS 61 % (28-66); PLATELET ESTIMATE NORMAL (NORMAL)
[2020-10-08 12:46] LABS: ALBUMIN 3.5 GM/DL (3.2-5.2); ALT/SGPT 52 U/L (12-78); BILIRUBIN,TOTAL 1.1 MG/DL (0.2-1.0); BLOOD UREA NITROGEN 20 MG/DL (7-18); CALCIUM LEVEL 8.5 MG/DL (8.8-10.2); CARBON DIOXIDE LEVEL 23 MEQ/L (21-32); CHLORIDE LEVEL 110 MEQ/L (98-107); CREATININE FOR GFR 1.15 MG/DL (0.70-1.30); FERRITIN 201 NG/ML (26-388); GLOMERULAR FILTRATION RATE > 60.0 (>35); GLUCOSE, FASTING 110 MG/DL (70-100); IRON (FE) 31 UG/DL (65-175); NT-PRO BNP 449 PG/ML (<450); PERCENT SATURATION 12.7 % (19.7-50.0); POTASSIUM SERUM 3.9 MEQ/L (3.5-5.1); SODIUM LEVEL 140 MEQ/L (136-145); TOTAL IRON BINDING CAPACITY 245 UG/DL (250-450); TOTAL PROTEIN 6.6 GM/DL (6.4-8.2); VITAMIN B12 LEVEL 659 PG/ML (247-911)
[2020-10-08 12:48] LABS: HEMOGLOBIN A1c 7.2 %
[2020-10-09 23:18] LABS: PSA TOTAL 14.4 ng/mL (0.0-4.0)
== END ==
LOC: M PLALAB 08:04
PROVIDERS: ATTEND Family Medicine
DX: E11.9 Type 2 diabetes mellitus without complications (principal)

== ENCOUNTER → 2020-10-17 | Outpatient (REF) | payer MEDICARE | LOC: M SFHCPLAZ 13:54 | PROVIDERS: ATTEND Family Medicine | DX: C43.39 Malignant melanoma of other parts of face (principal); D03.39 Melanoma in situ of other parts of face; I12.9 Hypertensive chronic kidney disease with stage 1 through stage 4 chronic kidney disease, or unspecified chronic kidney disease; E11.22 Type 2 diabetes mellitus with diabetic chronic kidney disease; M48.062 Spinal stenosis, lumbar region with neurogenic claudication; N39.0 Urinary tract infection, site not specified; D36.9 Benign neoplasm, unspecified site; D50.9 Iron deficiency anemia, unspecified; G40.909 Epilepsy, unspecified, not intractable, without status epilepticus; N40.1 Benign prostatic hyperplasia with lower urinary tract symptoms; E78.2 Mixed hyperlipidemia; R97.20 Elevated prostate specific antigen [PSA]; I44.7 Left bundle-branch block, unspecified; E55.9 Vitamin D deficiency, unspecified; N18.30 Chronic kidney disease, stage 3 unspecified; Z86.010 Personal history of colon polyps | CPT/HCPCS: 11104; 11105; 88305; G0463 ==

== ENCOUNTER → 2020-11-22 | Outpatient (REF) | payer MEDICARE | LOC: M LAB REF 18:54 | PROVIDERS: ATTEND Dermatology | DX: C43.39 Malignant melanoma of other parts of face (principal) ==

== ENCOUNTER → 2021-01-27 | Outpatient (CLI) | payer MEDICARE ==
[2021-01-27 13:05] LABS: BASO % 0.3 % (0.0-1.0); EOS # 0.1 10^3/uL (0.0-0.5); EOS % 1.8 % (0.0-3.0); HEMATOCRIT 45.3 % (42.0-52.0); HEMOGLOBIN 15.1 g/dl (13.5-17.5); LYMPH # 1.8 10^3/uL (1.5-5.0); LYMPH % 24.8 % (24.0-44.0); MEAN CORPUSCULAR HEMOGLOBIN 29.4 pg (27.0-33.0); MEAN CORPUSCULAR HGB CONC 33.3 g/dl (32.0-36.5); MEAN CORPUSCULAR VOLUME 88.3 fl (80.0-96.0); MONO # 0.6 10^3/uL (0.0-0.8); MONO % 8.5 % (2.0-8.0); NEUTROPHILS # 4.6 10^3/uL (1.5-8.5); NEUTROPHILS % 64.3 % (36.0-66.0); PLATELET COUNT, AUTOMATED 244 10^3/uL (150-450); RED BLOOD COUNT 5.13 10^6/uL (4.30-6.10); WHITE BLOOD COUNT 7.1 10^3/uL (4.0-10.0)
[2021-01-27 13:33] LABS: ALBUMIN 3.7 GM/DL (3.2-5.2); ALT/SGPT 31 U/L (12-78); BILIRUBIN,TOTAL 1.4 MG/DL (0.2-1.0); BLOOD UREA NITROGEN 14 MG/DL (7-18); CALCIUM LEVEL 9.2 MG/DL (8.8-10.2); CARBON DIOXIDE LEVEL 27 MEQ/L (21-32); CHLORIDE LEVEL 107 MEQ/L (98-107); CREATININE FOR GFR 1.17 MG/DL (0.70-1.30); FERRITIN 79 NG/ML (26-388); GLOMERULAR FILTRATION RATE > 60.0 (>35); GLUCOSE, FASTING 255 MG/DL (70-100); NT-PRO BNP 1264 PG/ML (<450); POTASSIUM SERUM 4.1 MEQ/L (3.5-5.1); SODIUM LEVEL 139 MEQ/L (136-145); TOTAL PROTEIN 6.8 GM/DL (6.4-8.2)
[2021-01-27 14:14] LABS: HEMOGLOBIN A1c 6.6 %
== END ==
LOC: M PLALAB 09:28
PROVIDERS: ATTEND Family Medicine
DX: D50.9 Iron deficiency anemia, unspecified (principal); Z79.899 Other long term (current) drug therapy

== ENCOUNTER → 2021-05-05 | Outpatient (CLI) | payer MEDICARE ==
[~2021-05-05] MED LIST changes: -LEVO500T3 PO; +LEVO500T4 PO
== END ==
LOC: M PLARAD 13:48
PROVIDERS: ATTEND Family Medicine
DX: C43.39 Malignant melanoma of other parts of face (principal)
CPT/HCPCS: 78816; A9552

== ENCOUNTER 2021-07-11 06:09 | Emergency (ER) | payer MEDICARE ==
[~2021-07-11] VITALS: Ht 167.6 cm; Wt 81.8 kg
[2021-07-11] MEDS ORDERED: AMLO1TAB24 PO (06:34)
[2021-07-11 07:39] LABS: HEMATOCRIT 43.8 % (42.0-52.0); HEMOGLOBIN 14.9 g/dl (13.5-17.5); MEAN CORPUSCULAR HEMOGLOBIN 30.8 pg (27.0-33.0); MEAN CORPUSCULAR VOLUME 90.5 fl (80.0-96.0); PLATELET COUNT, AUTOMATED 237 10^3/uL (150-450); RED BLOOD COUNT 4.84 10^6/uL (4.30-6.10); WHITE BLOOD COUNT 7.1 10^3/uL (4.0-10.0)
[2021-07-11 07:50] LABS: INR 0.91; PROTHROMBIN TIME 12.7 SECONDS (12.7-14.5)
[2021-07-11 08:10] LABS: ALBUMIN 3.7 GM/DL (3.2-5.2); ALT/SGPT 41 U/L (12-78); BILIRUBIN,TOTAL 1.1 MG/DL (0.2-1.0); BLOOD UREA NITROGEN 22 MG/DL (7-18); CALCIUM LEVEL 9.2 MG/DL (8.8-10.2); CARBON DIOXIDE LEVEL 23 MEQ/L (21-32); CHLORIDE LEVEL 108 MEQ/L (98-107); CREATININE FOR GFR 0.96 MG/DL (0.70-1.30); GLOMERULAR FILTRATION RATE > 60.0 (>35); GLUCOSE, FASTING 157 MG/DL (70-100); POTASSIUM SERUM 4.1 MEQ/L (3.5-5.1); SODIUM LEVEL 139 MEQ/L (136-145); TOTAL PROTEIN 6.8 GM/DL (6.4-8.2)
[2021-07-11 09:23] LABS: BILIRUBIN,DIRECT 0.3 MG/DL (0.0-0.2); LIPASE 199 U/L (73-393)
[2021-07-11] MEDS ORDERED: NS 1,000 ML IV ONE (10:15)
[2021-07-11 12:07] VITALS: BP 169/80
== END 2021-07-11 12:44 | disposition home or self-care (01) ==
LOC: M ED 06:09
DX: K64.9 Unspecified hemorrhoids (principal); K62.5 Hemorrhage of anus and rectum; E86.0 Dehydration; E11.9 Type 2 diabetes mellitus without complications; I10 Essential (primary) hypertension; R56.9 Unspecified convulsions; K57.32 Diverticulitis of large intestine without perforation or abscess without bleeding; Z79.899 Other long term (current) drug therapy

== ENCOUNTER → 2021-10-29 | Outpatient (CLI) | payer MEDICARE ==
[~2021-10-29] MED LIST changes: +AMLO1TAB24 PO; +LEVO1TAB39 PO; -LEVO500T4 PO
[2021-10-29 11:22] LABS: BASO % 0.3 % (0.0-1.0); EOS # 0.1 10^3/uL (0.0-0.5); EOS % 1.2 % (0.0-3.0); HEMATOCRIT 43.8 % (42.0-52.0); HEMOGLOBIN 14.6 g/dl (13.5-17.5); LYMPH # 1.6 10^3/uL (1.5-5.0); LYMPH % 27.3 % (24.0-44.0); MEAN CORPUSCULAR HEMOGLOBIN 30.1 pg (27.0-33.0); MEAN CORPUSCULAR HGB CONC 33.3 g/dl (32.0-36.5); MEAN CORPUSCULAR VOLUME 90.3 fl (80.0-96.0); MONO # 0.5 10^3/uL (0.0-0.8); NEUTROPHILS # 3.7 10^3/uL (1.5-8.5); PLATELET COUNT, AUTOMATED 214 10^3/uL (150-450); RED BLOOD COUNT 4.85 10^6/uL (4.30-6.10); WHITE BLOOD COUNT 5.9 10^3/uL (4.0-10.0)
[2021-10-29 12:08] LABS: ALBUMIN 3.7 GM/DL (3.2-5.2); ALT/SGPT 31 U/L (12-78); BILIRUBIN,TOTAL 1.3 MG/DL (0.2-1.0); BLOOD UREA NITROGEN 19 MG/DL (7-18); CALCIUM LEVEL 8.9 MG/DL (8.8-10.2); CARBON DIOXIDE LEVEL 27 MEQ/L (21-32); CHLORIDE LEVEL 107 MEQ/L (98-107); CREATININE FOR GFR 1.02 MG/DL (0.70-1.30); FERRITIN 164 NG/ML (26-388); GLOMERULAR FILTRATION RATE > 60.0 (>35); GLUCOSE, FASTING 153 MG/DL (70-100); NT-PRO BNP 398 PG/ML (<450); POTASSIUM SERUM 3.9 MEQ/L (3.5-5.1); SODIUM LEVEL 139 MEQ/L (136-145); TOTAL PROTEIN 7.1 GM/DL (6.4-8.2)
[2021-10-29 12:50] LABS: TOTAL 25(OH) VITAMIN D 36.4 NG/ML (30.0-100.0)
[2021-10-29 12:51] LABS: PTH INTACT 52.6 PG/ML (18.5-88.0); VITAMIN B12 LEVEL 251 PG/ML (247-911)
== END ==
LOC: M PLALAB 08:19
PROVIDERS: ATTEND Family Medicine
DX: I10 Essential (primary) hypertension (principal); E11.9 Type 2 diabetes mellitus without complications; Z79.899 Other long term (current) drug therapy

== ENCOUNTER 2022-03-05 13:29 | Emergency (ER) | payer MEDICARE ==
[~2022-03-05] VITALS: Ht 180.3 cm; Wt 80.6 kg
[2022-03-05 13:33] VITALS: BP 164/87
[2022-03-05] MEDS ORDERED: CHLO1TAB35 PO (13:45)
[2022-03-05] MEDS ORDERED: VITA500T40 (13:45)
[2022-03-05 14:35] LABS: RSV AMPLIFICATION NEGATIVE (NEGATIVE)
== END 2022-03-05 16:49 | disposition home or self-care (01) ==
LOC: M ED 13:29
DX: J09.X2 Influenza due to identified novel influenza A virus with other respiratory manifestations (principal); R94.31 Abnormal electrocardiogram [ECG] [EKG]; I10 Essential (primary) hypertension; Z79.899 Other long term (current) drug therapy

== ENCOUNTER → 2022-06-22 | Outpatient (CLI) | payer MEDICARE ==
[~2022-06-22] MED LIST changes: +CHLO1TAB35 PO; +VITA500T40
[2022-06-22 15:11] LABS: BASO % 0.3 % (0.0-1.0); EOS # 0.1 10^3/uL (0.0-0.5); EOS % 1.3 % (0.0-3.0); HEMATOCRIT 48.1 % (42.0-52.0); HEMOGLOBIN 16.1 g/dl (13.5-17.5); LYMPH # 2.4 10^3/uL (1.5-5.0); LYMPH % 30.2 % (24.0-44.0); MEAN CORPUSCULAR HGB CONC 33.5 g/dl (32.0-36.5); MEAN CORPUSCULAR VOLUME 89.6 fl (80.0-96.0); MONO # 0.7 10^3/uL (0.0-0.8); MONO % 8.7 % (2.0-8.0); NEUTROPHILS # 4.6 10^3/uL (1.5-8.5); NEUTROPHILS % 58.9 % (36.0-66.0); PLATELET COUNT, AUTOMATED 238 10^3/uL (150-450); RED BLOOD COUNT 5.37 10^6/uL (4.30-6.10); WHITE BLOOD COUNT 7.8 10^3/uL (4.0-10.0)
[2022-06-22 16:34] LABS: HEMOGLOBIN A1c 9.9 % (4.0-6.0)
[2022-06-22 19:27] LABS: ALBUMIN 3.9 G/DL (3.2-5.2); ALKALINE PHOSPHATASE 107 U/L (46-116); ALT/SGPT 36 U/L (7.0-40); AST/SGOT 20 U/L (<34); BILIRUBIN,TOTAL 1.3 MG/DL (0.3-1.2); BLOOD UREA NITROGEN 25 MG/DL (9-23); CALCIUM LEVEL 9.4 MG/DL (8.3-10.6); CARBON DIOXIDE LEVEL 27 MMOL/L (20-31); CHLORIDE LEVEL 101 MMOL/L (98-107); CHOLESTEROL LEVEL 165 MG/DL (<200); CHOLESTEROL RISK RATIO 4.31 (<5); CREATININE FOR GFR 0.91 MG/DL (0.70-1.30); FERRITIN 115.9 NG/ML (10.5-307.3); FREE T4 1.07 NG/DL (0.89-1.76); GLOMERULAR FILTRATION RATE > 60.0 (>35); GLUCOSE, FASTING 223 MG/DL (74-106); HDL CHOLESTEROL 38.2 MG/DL (>40); LDL CHOLESTEROL 70.2 MG/DL (<100); NON-HDL-C 126.8 MG/DL; POTASSIUM SERUM 4.5 MMOL/L (3.5-5.1); SODIUM LEVEL 135 MMOL/L (136-145); THYROID STIMULATING HORMONE 2.268 uIU/ML (0.55-4.78); TRIGLYCERIDES LEVEL 283 MG/DL (<150); VITAMIN B12 LEVEL 802 PG/ML (211-911)
== END ==
LOC: M PLALAB 09:36
PROVIDERS: ATTEND Family Medicine
DX: E78.2 Mixed hyperlipidemia (principal); E53.0 Riboflavin deficiency; E11.9 Type 2 diabetes mellitus without complications; N40.1 Benign prostatic hyperplasia with lower urinary tract symptoms
CPT/HCPCS: 36415; 80053; 80061; 82607; 82728; 82747; 83036; 83880; 84439; 84443; 85025; G0103

== ENCOUNTER → 2022-12-03 | Outpatient (CLI) | payer MEDICARE ==
[~2022-12-03] MED LIST changes: +FINA-48 PO; -PROS5TAB PO
[2022-12-03 14:29] LABS: ALKALINE PHOSPHATASE 94 U/L (46-116); ALT/SGPT 39 U/L (7.0-40); AST/SGOT 22 U/L (<34); BILIRUBIN,TOTAL 1.5 MG/DL (0.3-1.2); BLOOD UREA NITROGEN 23 MG/DL (9-23); CALCIUM LEVEL 9.5 MG/DL (8.3-10.6); CARBON DIOXIDE LEVEL 30 MMOL/L (20-31); CHLORIDE LEVEL 103 MMOL/L (98-107); CREATININE FOR GFR 0.83 MG/DL (0.70-1.30); GLOMERULAR FILTRATION RATE > 60.0 (>35); GLUCOSE, FASTING 133 MG/DL (74-106); POTASSIUM SERUM 4.5 MMOL/L (3.5-5.1); SODIUM LEVEL 139 MMOL/L (136-145); TOTAL PROTEIN 7.2 G/DL (5.7-8.2)
[2022-12-03 14:30] LABS: BASO % 0.6 % (0.0-1.0); EOS # 0.1 10^3/uL (0.0-0.5); EOS % 1.8 % (0.0-3.0); HEMATOCRIT 47.7 % (42.0-52.0); HEMOGLOBIN 15.9 g/dl (13.5-17.5); LYMPH # 1.9 10^3/uL (1.5-5.0); LYMPH % 27.1 % (24.0-44.0); MEAN CORPUSCULAR HEMOGLOBIN 30.1 pg (27.0-33.0); MEAN CORPUSCULAR HGB CONC 33.3 g/dl (32.0-36.5); MEAN CORPUSCULAR VOLUME 90.2 fl (80.0-96.0); MONO # 0.7 10^3/uL (0.0-0.8); MONO % 9.7 % (2.0-8.0); NEUTROPHILS # 4.3 10^3/uL (1.5-8.5); NEUTROPHILS % 60.1 % (36.0-66.0); PLATELET COUNT, AUTOMATED 209 10^3/uL (150-450); RED BLOOD COUNT 5.29 10^6/uL (4.30-6.10); WHITE BLOOD COUNT 7.1 10^3/uL (4.0-10.0)
[2022-12-04 08:51] LABS: PTH INTACT 51.2 PG/ML (18.5-88.0)
== END ==
LOC: M PLALAB 09:59
PROVIDERS: ATTEND Family Medicine
DX: D50.9 Iron deficiency anemia, unspecified (principal); E11.9 Type 2 diabetes mellitus without complications; E55.9 Vitamin D deficiency, unspecified

== ENCOUNTER → 2022-12-03 | Outpatient (REF) | payer MEDICARE | LOC: M SFHCPLAZ 10:48 | PROVIDERS: ATTEND Family Medicine | DX: E11.9 Type 2 diabetes mellitus without complications (principal); D50.9 Iron deficiency anemia, unspecified; E55.9 Vitamin D deficiency, unspecified ==

== ENCOUNTER → 2023-05-07 | Outpatient (REF) | payer MEDICARE | LOC: M SFHCPLAZ 12:13 | PROVIDERS: ATTEND Family Medicine | DX: E53.8 Deficiency of other specified B group vitamins (principal); E11.9 Type 2 diabetes mellitus without complications ==

== ENCOUNTER → 2023-05-07 | Outpatient (CLI) | payer MEDICARE, MEDICAID ==
[2023-05-07 16:04] LABS: BASO % 0.2 % (0.0-1.0); EOS # 0.1 10^3/uL (0.0-0.5); EOS % 0.7 % (0.0-3.0); HEMATOCRIT 46.4 % (42.0-52.0); HEMOGLOBIN 15.9 g/dl (13.5-17.5); LYMPH % 22.2 % (24.0-44.0); MEAN CORPUSCULAR HEMOGLOBIN 29.9 pg (27.0-33.0); MEAN CORPUSCULAR HGB CONC 34.3 g/dl (32.0-36.5); MEAN CORPUSCULAR VOLUME 87.4 fl (80.0-96.0); MONO # 0.7 10^3/uL (0.0-0.8); MONO % 7.2 % (2.0-8.0); NEUTROPHILS # 6.3 10^3/uL (1.5-8.5); NEUTROPHILS % 69.2 % (36.0-66.0); PLATELET COUNT, AUTOMATED 266 10^3/uL (150-450); RED BLOOD COUNT 5.31 10^6/uL (4.30-6.10); WHITE BLOOD COUNT 9.1 10^3/uL (4.0-10.0)
[2023-05-07 16:26] LABS: HEMOGLOBIN A1c 8.8 % (4.0-6.0)
[2023-05-07 16:37] LABS: ALKALINE PHOSPHATASE 92 U/L (46-116); ALT/SGPT 35 U/L (7.0-40); AST/SGOT 19 U/L (<34); BILIRUBIN,TOTAL 1.6 MG/DL (0.3-1.2); BLOOD UREA NITROGEN 26 MG/DL (9-23); CALCIUM LEVEL 10.1 MG/DL (8.3-10.6); CARBON DIOXIDE LEVEL 26 MMOL/L (20-31); CHLORIDE LEVEL 106 MMOL/L (98-107); CREATININE FOR GFR 1.01 MG/DL (0.70-1.30); GLOMERULAR FILTRATION RATE > 60.0 (>35); GLUCOSE, FASTING 176 MG/DL (74-106); POTASSIUM SERUM 4.5 MMOL/L (3.5-5.1); SODIUM LEVEL 139 MMOL/L (136-145); TOTAL PROTEIN 7.1 G/DL (5.7-8.2); VITAMIN B12 LEVEL 1182 PG/ML (211-911)
== END ==
LOC: M PLALAB 12:55
PROVIDERS: ATTEND Family Medicine
DX: E11.9 Type 2 diabetes mellitus without complications (principal); E53.8 Deficiency of other specified B group vitamins

== ENCOUNTER → 2023-05-10 | Outpatient (REF) | payer MEDICARE | LOC: M SFHCPLAZ 08:55 | PROVIDERS: ATTEND Family Medicine | DX: E53.8 Deficiency of other specified B group vitamins (principal); E11.9 Type 2 diabetes mellitus without complications ==

== ENCOUNTER → 2023-10-05 | Outpatient (REF) | payer MEDICARE ==
[~2023-10-05] MED LIST changes: -GLIM1TAB4 PO; +GLIM1TAB84 PO
== END ==
LOC: M SFHCPLAZ 12:13
PROVIDERS: ATTEND Family Medicine
DX: E11.9 Type 2 diabetes mellitus without complications (principal); E53.8 Deficiency of other specified B group vitamins; G40.909 Epilepsy, unspecified, not intractable, without status epilepticus; Z12.5 Encounter for screening for malignant neoplasm of prostate

== ENCOUNTER → 2023-10-05 | Outpatient (CLI) | payer MEDICARE ==
[2023-10-05 15:51] LABS: BASO % 0.4 % (0.0-1.0); EOS # 0.1 10^3/uL (0.0-0.5); EOS % 0.9 % (0.0-3.0); HEMATOCRIT 47.6 % (42.0-52.0); HEMOGLOBIN 15.9 g/dl (13.5-17.5); LYMPH # 1.8 10^3/uL (1.5-5.0); LYMPH % 22.1 % (24.0-44.0); MEAN CORPUSCULAR HEMOGLOBIN 30.7 pg (27.0-33.0); MEAN CORPUSCULAR HGB CONC 33.4 g/dl (32.0-36.5); MEAN CORPUSCULAR VOLUME 91.9 fl (80.0-96.0); MONO # 0.7 10^3/uL (0.0-0.8); MONO % 8.7 % (2.0-8.0); NEUTROPHILS # 5.5 10^3/uL (1.5-8.5); NEUTROPHILS % 67.7 % (36.0-66.0); PLATELET COUNT, AUTOMATED 249 10^3/uL (150-450); RED BLOOD COUNT 5.18 10^6/uL (4.30-6.10); WHITE BLOOD COUNT 8.1 10^3/uL (4.0-10.0)
[2023-10-05 15:59] LABS: ALBUMIN 3.9 G/DL (3.2-5.2); ALKALINE PHOSPHATASE 94 U/L (46-116); ALT/SGPT 32 U/L (7.0-40); AST/SGOT 17 U/L (<34); BILIRUBIN,TOTAL 1.7 MG/DL (0.3-1.2); BLOOD UREA NITROGEN 20 MG/DL (9-23); CALCIUM LEVEL 10.3 MG/DL (8.3-10.6); CARBON DIOXIDE LEVEL 31 MMOL/L (20-31); CHLORIDE LEVEL 106 MMOL/L (98-107); CHOLESTEROL LEVEL 147 MG/DL (<200); CHOLESTEROL RISK RATIO 4.06 (<5); CREATININE FOR GFR 0.96 MG/DL (0.70-1.30); GLOMERULAR FILTRATION RATE > 60.0 (>35); GLUCOSE, FASTING 120 MG/DL (74-106); HDL CHOLESTEROL 36.2 MG/DL (>40); NON-HDL-C 110.8 MG/DL; SODIUM LEVEL 141 MMOL/L (136-145); TOTAL PROTEIN 6.8 G/DL (5.7-8.2); TRIGLYCERIDES LEVEL 164 MG/DL (<150)
[2023-10-05 16:01] LABS: FERRITIN 144.3 NG/ML (10.5-307.3)
[2023-10-05 16:07] LABS: HEMOGLOBIN A1c 7.3 % (4.0-6.0)
== END ==
LOC: M PLALAB 12:33
PROVIDERS: ATTEND Family Medicine
DX: E53.8 Deficiency of other specified B group vitamins (principal); E11.9 Type 2 diabetes mellitus without complications; G40.909 Epilepsy, unspecified, not intractable, without status epilepticus; Z12.5 Encounter for screening for malignant neoplasm of prostate
CPT/HCPCS: 36415; 80053; 80061; 80177; 82728; 83036; 85025; G0103

== ENCOUNTER 2024-03-04 03:20 | Emergency (ER) | payer MEDICARE ==
[~2024-03-04] VITALS: Ht 170.2 cm; Wt 73.8 kg
[~2024-03-04 03:20] MED LIST changes: -CYCL5TAB PO; +CYCL5TAB4 PO
[2024-03-04] MEDS: methocarbamoL 500 MG TAB PO ONE (04:34)
[2024-03-04] MEDS ORDERED: METH-1164 PO (05:50)
[2024-03-04 06:01] VITALS: BP 147/85; TEMP 97.6; O2SAT 97
== END 2024-03-04 06:03 | disposition home or self-care (01) ==
LOC: M ED 03:20
DX: U07.1 COVID-19 (principal); M54.50 Low back pain, unspecified; E11.9 Type 2 diabetes mellitus without complications; I10 Essential (primary) hypertension; E78.5 Hyperlipidemia, unspecified; Z79.84 Long term (current) use of oral hypoglycemic drugs; Z79.899 Other long term (current) drug therapy

== ENCOUNTER 2024-03-06 08:25 | Emergency (ER) | payer MEDICARE ==
[~2024-03-06] VITALS: Ht 172.7 cm; Wt 73.8 kg
[~2024-03-06 08:25] MED LIST changes: +METH-1164 PO
[2024-03-06 11:32] VITALS: BP 135/83; TEMP 97.4; O2SAT 98
== END 2024-03-06 11:36 | disposition home or self-care (01) ==
LOC: M ED 08:25
DX: M25.551 Pain in right hip (principal); E11.9 Type 2 diabetes mellitus without complications; I10 Essential (primary) hypertension; G40.909 Epilepsy, unspecified, not intractable, without status epilepticus; Z79.899 Other long term (current) drug therapy

== ENCOUNTER → 2024-03-20 | Outpatient (CLI) | payer MEDICARE | LOC: M PLAIMG 11:03 | PROVIDERS: ATTEND Physician Assistant Medical | DX: M51.360 Other intervertebral disc degeneration, lumbar region with discogenic back pain only (principal); M51.370 Other intervertebral disc degeneration, lumbosacral region with discogenic back pain only ==

== ENCOUNTER → 2024-03-28 | Outpatient (CLI) | payer MEDICARE ==
[2024-03-28 15:29] LABS: BASO % 0.2 % (0.0-1.0); EOS # 0.1 10^3/uL (0.0-0.5); EOS % 0.6 % (0.0-3.0); HEMATOCRIT 38.8 % (42.0-52.0); HEMOGLOBIN 12.7 g/dl (13.5-17.5); LYMPH # 1.6 10^3/uL (1.5-5.0); LYMPH % 17.1 % (24.0-44.0); MEAN CORPUSCULAR HEMOGLOBIN 29.4 pg (27.0-33.0); MEAN CORPUSCULAR HGB CONC 32.7 g/dl (32.0-36.5); MEAN CORPUSCULAR VOLUME 89.8 fl (80.0-96.0); MONO # 1.1 10^3/uL (0.0-0.8); MONO % 11.4 % (2.0-8.0); NEUTROPHILS # 6.5 10^3/uL (1.5-8.5); NEUTROPHILS % 69.9 % (36.0-66.0); PLATELET COUNT, AUTOMATED 412 10^3/uL (150-450); RED BLOOD COUNT 4.32 10^6/uL (4.30-6.10); WHITE BLOOD COUNT 9.3 10^3/uL (4.0-10.0)
[2024-03-28 15:32] LABS: INR 1.02; PARTIAL THROMBOPLASTIN TIME 35.1 SECONDS (24.8-34.2); PROTHROMBIN TIME 13.7 SECONDS (12.5-14.5)
[2024-03-28 16:00] LABS: ALBUMIN 2.9 G/DL (3.2-5.2); ALKALINE PHOSPHATASE 77 U/L (40-129); ALT/SGPT 31 U/L (7.0-40); AST/SGOT 19 U/L (<34); BILIRUBIN,TOTAL 0.7 MG/DL (0.3-1.2); BLOOD UREA NITROGEN 21 MG/DL (9-23); CALCIUM LEVEL 10.1 MG/DL (8.3-10.6); CARBON DIOXIDE LEVEL 29 MMOL/L (20-31); CHLORIDE LEVEL 99 MMOL/L (98-107); CHOLESTEROL LEVEL 107 MG/DL (<200); CHOLESTEROL RISK RATIO 3.29 (<5); CREATININE FOR GFR 0.84 MG/DL (0.70-1.30); GLOMERULAR FILTRATION RATE > 60.0 (>35); GLUCOSE, FASTING 168 MG/DL (74-106); HDL CHOLESTEROL 32.5 MG/DL (>40); LDL CHOLESTEROL 55.1 MG/DL (<100); NON-HDL-C 74.5 MG/DL; POTASSIUM SERUM 4.6 MMOL/L (3.5-5.1); SODIUM LEVEL 135 MMOL/L (136-145); TOTAL PROTEIN 7.1 G/DL (5.7-8.2); TRIGLYCERIDES LEVEL 97 MG/DL (<150)
[2024-03-28 16:01] LABS: HEMOGLOBIN A1c 8.2 % (4.0-6.0)
[2024-03-28 16:02] LABS: FERRITIN 362.1 NG/ML (10.5-307.3)
== END ==
LOC: M PLALAB 12:30
PROVIDERS: ATTEND Family Medicine
DX: E53.8 Deficiency of other specified B group vitamins (principal); Z12.5 Encounter for screening for malignant neoplasm of prostate; K74.00 Hepatic fibrosis, unspecified; E11.9 Type 2 diabetes mellitus without complications; G43.909 Migraine, unspecified, not intractable, without status migrainosus
CPT/HCPCS: 36415; 80053; 80061; 80177; 82105; 82728; 83036; 85025; 85610; 85730; G0103

== ENCOUNTER → 2024-08-07 | Outpatient (CLI) | payer MEDICARE ==
[~2024-08-07] MED LIST changes: -FLOM0.4C39 PO; +TAMS-18 PO
[2024-08-07 17:14] LABS: BASO % 0.1 % (0.0-1.0); EOS # 0.1 10^3/uL (0.0-0.5); EOS % 0.9 % (0.0-3.0); HEMATOCRIT 45.4 % (42.0-52.0); HEMOGLOBIN 14.7 g/dl (13.5-17.5); LYMPH # 1.6 10^3/uL (1.5-5.0); LYMPH % 22.3 % (24.0-44.0); MEAN CORPUSCULAR HEMOGLOBIN 27.7 pg (27.0-33.0); MEAN CORPUSCULAR HGB CONC 32.4 g/dl (32.0-36.5); MEAN CORPUSCULAR VOLUME 85.7 fl (80.0-96.0); MONO # 0.7 10^3/uL (0.0-0.8); MONO % 10.4 % (2.0-8.0); NEUTROPHILS # 4.6 10^3/uL (1.5-8.5); NEUTROPHILS % 65.7 % (36.0-66.0); PLATELET COUNT, AUTOMATED 287 10^3/uL (150-450); WHITE BLOOD COUNT 7.1 10^3/uL (4.0-10.0)
[2024-08-07 17:40] LABS: HEMOGLOBIN A1c 10.5 % (4.0-6.0)
[2024-08-07 17:45] LABS: ALBUMIN 3.6 G/DL (3.2-5.2); BILIRUBIN,TOTAL 0.6 MG/DL (0.3-1.2); CALCIUM LEVEL 9.9 MG/DL (8.3-10.6); CREATININE FOR GFR 0.79 MG/DL (0.70-1.30); GLOMERULAR FILTRATION RATE 87.1 (>35); PERCENT SATURATION 11.9 % (19.7-50.0); POTASSIUM SERUM 4.4 MMOL/L (3.5-5.1); TOTAL PROTEIN 7.3 G/DL (5.7-8.2)
== END ==
LOC: M PLALAB 15:18
PROVIDERS: ATTEND Family Medicine
DX: E53.8 Deficiency of other specified B group vitamins (principal); E11.9 Type 2 diabetes mellitus without complications; D50.9 Iron deficiency anemia, unspecified; K74.00 Hepatic fibrosis, unspecified

== ENCOUNTER → 2024-12-19 | Outpatient (REF) | payer MEDICARE ==
[~2024-12-19] MED LIST changes: +LISI40TA10 PO; -LISI40TA4 PO
[2024-12-19 18:51] LABS: BASO # 0.0 10^3/uL (0.0-0.2); BASO % 0.3 % (0.0-1.0); EOS # 0.1 10^3/uL (0.0-0.5); EOS % 1.0 % (0.0-3.0); LYMPH # 2.0 10^3/uL (1.5-5.0); LYMPH % 26.1 % (24.0-44.0); MONO # 0.8 10^3/uL (0.0-0.8); MONO % 10.5 % (2.0-8.0); NEUTROPHILS # 4.8 10^3/uL (1.5-8.5); NEUTROPHILS % 61.6 % (36.0-66.0); PLATELET COUNT, AUTOMATED 277 10^3/uL (150-450)
[2024-12-19 19:13] LABS: ESTIMATED AVERAGE GLUCOSE 148.0 MG/DL (60-110)
[2024-12-19 19:18] LABS: ALT/SGPT 27 U/L (7.0-40); AST/SGOT 23 U/L (<34); CALCIUM LEVEL 9.9 MG/DL (8.3-10.6); CARBON DIOXIDE LEVEL 27 MMOL/L (20-31); CHLORIDE LEVEL 104 MMOL/L (98-107); CHOLESTEROL LEVEL 130 MG/DL (<200); CHOLESTEROL RISK RATIO 3.29 (<5); CREATININE FOR GFR 0.81 MG/DL (0.70-1.30); GLOMERULAR FILTRATION RATE 86.4 (>35); IRON (FE) 55 UG/DL (65-175); LDL CHOLESTEROL 61.7 MG/DL (<100); NON-HDL-C 90.5 MG/DL; PERCENT SATURATION 19.0 % (19.7-50.0); POTASSIUM SERUM 4.1 MMOL/L (3.5-5.1); PSA SCREENING 8.67 NG/ML (< 4.00); PTH INTACT 48.2 PG/ML (18.5-88.0); SODIUM LEVEL 140 MMOL/L (136-145); TRIGLYCERIDES LEVEL 144 MG/DL (<150)
[2024-12-19 19:20] LABS: TOTAL 25(OH) VITAMIN D 38.4 NG/ML (20.0-100.0)
[2024-12-22 01:38] LABS: C-PEPTIDE 3.63 ng/mL (0.80-3.85)
== END ==
LOC: M SFHCPLAZ 14:09
PROVIDERS: ATTEND Family Medicine
DX: E11.9 Type 2 diabetes mellitus without complications (principal); E53.8 Deficiency of other specified B group vitamins; G40.909 Epilepsy, unspecified, not intractable, without status epilepticus; Z12.5 Encounter for screening for malignant neoplasm of prostate; K74.00 Hepatic fibrosis, unspecified; D50.9 Iron deficiency anemia, unspecified; E55.9 Vitamin D deficiency, unspecified
CPT/HCPCS: 80053; 80061; 82105; 82306; 83036; 83525; 83550; 83970; 84238; 84681; 85025; G0103

== ENCOUNTER → 2024-12-26 | Outpatient (CLI) | payer MEDICARE ==
[2024-12-26 13:24] LABS: INR 1.01
== END ==
LOC: M PLALAB 09:58
PROVIDERS: ATTEND Family Medicine
DX: G40.909 Epilepsy, unspecified, not intractable, without status epilepticus (principal); K74.00 Hepatic fibrosis, unspecified